=== PATIENT | female | born 1950 | race Caucasian/White ===

== ENCOUNTER → 2017-02-07 13:21 | Emergency (ER) | payer MEDICARE ==
[2017-02-07 15:38] LABS: Hematocrit 38 % (35-47); Hemoglobin 12.9 g/dl (12.0-16.0); Mean Corpuscular HGB Conc 34 g/dl (31-36); Mean Corpuscular Hemoglobin 32 pg (27-31); Mean Corpuscular Volume 95 fL (80-97); Mean Platelet Volume 7 um3 (7.4-10.4); Red Blood Count 4.02 10^6/ul (4.0-5.4); Red Cell Distribution Width 12 % (10.5-15)
[2017-02-07 15:54] LABS: ALT 13 U/L (7-52); AST 16 U/L (13-39); Albumin 4.4 g/dL (3.2-5.2); Alkaline Phosphatase 158 U/L (34-104); Anion Gap 7 mmol/L (2-11); Blood Urea Nitrogen 17 mg/dL (6-24); CO2 Carbon Dioxide 26 mmol/L (22-32); Calcium 10.2 mg/dL (8.6-10.3); Chloride 104 mmol/L (101-111); EGFR African American 90.7 (>60); EGFR Non-African American 70.5 (>60); Globulin 3.5 g/dL (2-4); Glucose 102 mg/dL (70-100); Lipase < 10 U/L (11.0-82.0); Potassium 4.4 mmol/L (3.5-5.0); Sodium 137 mmol/L (133-145); Total Protein 7.9 g/dL (6.4-8.9)
[2017-02-07 16:08] VITALS: BP 192/82
--- NOTE | 2017-02-07 16:47 | RAD ---
HISTORY: Right upper quadrant pain COMPARISONS: None TECHNIQUE: Multiple transverse and longitudinal ultrasound images were obtained of the right upper quadrant. FINDINGS: LIVER: The liver exhibits mostly homogenous increased echogenicity with patchy areas of more normal hypoechogenicity. There are no focal suspicious masses or lesions. Normal hepatic and portal venous blood flow is duplicated with color flow imaging. There is no gross intrahepatic biliary duct dilatation. GALLBLADDER AND EXTRAHEPATIC BILIARY DUCT: The gallbladder is normal in appearance without intraluminal stones or other soft tissue masses. There is no pericholecystic fluid or gallbladder wall thickening. The common bile duct measures a maximum diameter of 6 mm. PANCREAS: The portions of the pancreas not obscured by bowel gas are normal in appearance. RIGHT KIDNEY: The right kidney is normal in size, morphology and echogenicity. AORTA AND IVC: The visualized portions are normal in appearance and not pathologically dilated. IMPRESSION: 1. NO DEFINITE SONOGRAPHIC FEATURES OF CHOLELITHIASIS, BILIARY OBSTRUCTION OR ACUTE INFLAMMATORY CHANGE OF THE GALLBLADDER. 2. LIVER FINDINGS ARE CONSISTENT WITH GEOGRAPHIC HEPATIC STEATOSIS WITH AREAS OF FOCAL FATTY SPARING.
--- NOTE | 2017-02-08 07:35 | ED ---
Joss Yeung Gabriel, scribed for Samy Maza MD on 02/07/17 at 1630 . Abdominal Pain/Female - HPI Summary HPI Summary: This patient is a 66 year old F presenting to [facility] accompanied by daughter with a chief complaint of ABD pain since 2 weeks ago. The patient rates the pain ranging from 3/10 to 7/10 at its worst in severity, radiating into her back and nagging. The pain is waxing and waning. Patient denies n/v/d. - History of Current Complaint Chief Complaint: EDAbdPain Stated Complaint: RIGHT ABD PAIN Time Seen by Provider: 02/07/17 16:01 Hx Obtained From: Patient Onset/Duration: Lasting Weeks - 2, Still Present Timing: Constant - waxing and waning Severity Currently: Mild Pain Intensity: 8 Pain Scale Used: 0-10 Numeric Location: Diffuse - at RUQ Radiates: Yes Radiates to: Back Associated Signs and Symptoms: Negative: Nausea, Vomiting, Diarrhea Allergies/Adverse Reactions: Allergies Allergy/AdvReac Type Severity Reaction Status Date / Time Acetaminophen Allergy Hives Verified 02/07/17 13:31 [From Darvocet-N] Erythromycin Allergy GI Upset Verified 02/07/17 13:31 Penicillins Allergy Hives Verified 02/07/17 13:30 Propoxyphene Allergy Hives Verified 02/07/17 13:31 [From Darvocet-N] Sulfa Antibiotics Allergy See Comment Verified 02/07/17 13:30 PMH/Surg Hx/FS Hx/Imm Hx Previously Healthy: No Endocrine/Hematology History: Reports: Hx Diabetes - borderline diabetic Cardiovascular History: Reports: Hx Hypertension - Cancer History Hx Chemotherapy: No Hx Radiation Therapy: No Infectious Disease History: No Infectious Disease History: Denies: Traveled Outside the [place] in Last 30 Days - Family History Known Family History: Positive: Diabetes - NIDDM - Social History Alcohol Use: None Substance Use Type: Reports: None Smoking Status (MU): Former Smoker Review of Systems Negative: Fever Positive: Abdominal Pain. Negative: Vomiting, Diarrhea, Nausea All Other Systems Reviewed And Are Negative: Yes Physical Exam - Summary Physical Exam Summary: VITAL SIGNS: Reviewed. GENERAL: Patient is a well-developed and nourished female who is lying comfortable in the stretcher. ~Patient is not in any acute respiratory distress. HEAD AND FACE: Normocephalic and atraumatic. EYES: PERRLA, EOMI x 2, No injected conjunctiva. EARS: Hearing grossly intact. Ear canals and tympanic membranes are WNL. MOUTH: Oropharynx within normal limits. NECK: Supple, trachea is midline, no adenopathy, no JVD. CHEST: Symmetric, no tenderness at palpation LUNGS: Clear to auscultation bilaterally. No wheezing or crackles. CVS: RRR, S1 and S2 present, no murmurs or gallops appreciated. ABDOMEN: Soft. No signs of distention. Positive bowel sounds. No rebound no guarding, and no masses palpated. No abdominal bruit or pulsations. Slight RUQ pain EXTREMITIES: FROM in all major joints, no edema, no cyanosis or clubbing. NEURO: Alert and oriented x 3. No acute neurological deficits. Speech is normal. SKIN: Dry and warm Triage Information Reviewed: Yes Vital Signs On Initial Exam: Initial Vitals Temp Pulse Resp BP Pulse Ox 98.2 F 83 17 144/84 97 02/07/17 13:28 02/07/17 13:28 02/07/17 13:28 02/07/17 13:28 02/07/17 13:28 Vital Signs Reviewed: Yes - Crescent Coma Scale Coma Scale Total: 15 Diagnostics - Vital Signs Vital Signs Temp Pulse Resp BP Pulse Ox 02/07/17 16:08 192/82 02/07/17 15:21 97.6 F 72 16 134/80 99 02/07/17 13:28 98.2 F 83 17 144/84 97 - Laboratory Lab Results: Lab Results 02/07/17 02/07/17 Range/Units 15:25 15:25 WBC 9.0 (3.5-10.8) 10^3/ul RBC 4.02 (4.0-5.4) 10^6/ul Hgb 12.9 (12.0-16.0) g/dl Hct 38 (35-47) % MCV 95 (80-97) fL MCH 32 H (27-31) pg MCHC 34 (31-36) g/dl RDW 12 (10.5-15) % Plt Count 404 (150-450) 10^3/ul MPV 7 L (7.4-10.4) um3 Neut % (Auto) 76.5 (38-83) % Lymph % (Auto) 15.5 L (25-47) % [place] % (Auto) 7.1 (1-9) % Eos % (Auto) 0.4 (0-6) % Baso % (Auto) 0.5 (0-2) % Absolute Neuts (auto) 6.9 (1.5-7.7) 10^3/ul Absolute Lymphs (auto) 1.4 (1.0-4.8) 10^3/ul Absolute Monos (auto) 0.6 (0-0.8) 10^3/ul Absolute Eos (auto) 0 (0-0.6) 10^3/ul Absolute Basos (auto) 0 (0-0.2) 10^3/ul Absolute Nucleated RBC 0.01 10^3/ul Nucleated RBC % 0.1 Sodium 137 (133-145) mmol/L Potassium 4.4 (3.5-5.0) mmol/L Chloride 104 (101-111) mmol/L Carbon Dioxide 26 (22-32) mmol/L Anion Gap 7 (2-11) mmol/L BUN 17 (6-24) mg/dL Creatinine 0.81 (0.51-0.95) mg/dL Est GFR ( Amer) 90.7 (>60) Est GFR (Non-Af Amer) 70.5 (>60) BUN/Creatinine Ratio 21.0 H (8-20) Glucose 102 H (70-100) mg/dL Calcium 10.2 (8.6-10.3) mg/dL Total Bilirubin 0.30 (0.2-1.0) mg/dL AST 16 (13-39) U/L ALT 13 (7-52) U/L Alkaline Phosphatase 158 H (34-104) U/L Total Protein 7.9 (6.4-8.9) g/dL Albumin 4.4 (3.2-5.2) g/dL Globulin 3.5 (2-4) g/dL Albumin/Globulin Ratio 1.3 (1-3) Lipase < 10 L (11.0-82.0) U/L Result Diagrams: 02/07/17 15:25 02/07/17 15:25 Lab Statement: Any lab studies that have been ordered have been reviewed, and results considered in the medical decision making process. - Additional Comments Diagnostic Additional Comments: US gallbladder reveals, per radiologist, 1. NO DEFINITE SONOGRAPHIC FEATURES OF CHOLELITHIASIS, BILIARY OBSTRUCTION OR ACUTE INFLAMMATORY CHANGE OF THE GALLBLADDER. 2. LIVER FINDINGS ARE CONSISTENT WITH GEOGRAPHIC HEPATIC STEATOSIS WITH AREAS OF FOCAL FATTY SPARING. ED physician has reviewed this radiology report and agrees. Abdominal Pain Fem Course/Dx - Course Course Of Treatment: In the ED course an IV access was obtained. Patient was placed in a radiographer cardiac catheterization. Patient was started with IV fluids. Labs without any significant abnormality. RUQ U/S Impression: 1. NO DEFINITE SONOGRAPHIC FEATURES OF CHOLELITHIASIS, BILIARY OBSTRUCTION OR ACUTE INFLAMMATORY CHANGE OF THE GALLBLADDER. 2. LIVER FINDINGS ARE CONSISTENT WITH GEOGRAPHIC HEPATIC STEATOSIS WITH AREAS OF FOCAL FATTY SPARING. Since patient is asymptomatic and test results are within normal limits, patient will be discharged back home. I discussed all the findings and test results with the patient. Patient was instructed to return to the emergency room immediately if any of the symptoms return or worsens. They were explained the possibility of an early abdominal pathology which was not detected at this time despite the physical exam and testing. They understand and agree. Abdominal exam before discharge: Soft, NT. No signs of distention. BS present. No rebound no guarding , and no masses palpated. Patient is alert and oriented and hemodynamically stable. Patient is to follow up with primary care physician in the next 2 to 3 days. Patient agree and understands. I discussed all the findings and test results with the patient. Patient was instructed to return to the emergency room immediately if any of the symptoms return or worsens. They were explained the possibility of an early abdominal pathology which was not detected at this time despite the physical exam and testing. They understand and agree. Abdominal exam before discharge: Soft, NT. No signs of distention. BS present. No rebound no guarding, and no masses palpated. Patient is alert and oriented and hemodynamically stable. Patient is to follow up with primary care physician in the next 2 to 3 days. Patient agree and understands. - Diagnoses Provider Diagnoses: Right upper quadrant pain, Nonalcoholic hepatosteatosis Discharge - Discharge Plan Condition: Stable Disposition: HOME Patient Education Materials: Chronic Abdominal Pain (ED) Referrals: Kinsey Garcia MD [Primary Care Provider] - 3 Days Additional Instructions: RETURN TO THE EMERGENCY DEPARTMENT FOR CHANGING OR WORSENING SYMPTOMS. The documentation as recorded by the Joss woo Gabriel accurately reflects the service I personally performed and the decisions made by me, Samy Maza MD.
== END | disposition home or self-care (01) ==
LOC: ED 13:21
DX: R10.11 Right upper quadrant pain (principal); K75.81 Nonalcoholic steatohepatitis (NASH); Z88.0 Allergy status to penicillin; Z88.8 Allergy status to other drugs, medicaments and biological substances; Z88.2 Allergy status to sulfonamides; I10 Essential (primary) hypertension; Z87.891 Personal history of nicotine dependence
CPT/HCPCS: 36415; 76705; 80053; 83690; 85025

== ENCOUNTER 2017-06-03 13:15 | Inpatient (IN) | payer MEDICARE ==
--- NOTE | 2017-06-03 16:08 | RAD ---
INDICATION: Left hip pain. COMPARISON: Comparison is made with a prior x-ray study of the left hip from June 03, 2017. TECHNIQUE: Contiguous axial sections were obtained through the pelvis without intravenous or oral contrast. Images were reconstructed in the coronal and sagittal planes. FINDINGS: There is a large soft tissue density mass present in the left hemipelvis centered in the left iliac bone extending into the acetabulum measuring 11.4 x 8.2 x 10.0 cm in size. There is complete replacement of the bone by the mass in a large section of the body of the left iliac bone as well as the roof and medial wall of the acetabulum. The patient would be at high risk for pathologic fracture although a discrete fracture line is not seen. No significant enlarged pelvic or inguinal lymph nodes are seen. On the very first couple images there is a soft tissue density nodule which is partially visualized located in the subcutaneous tissues of the anterior abdominal wall centered to the right of the midline measuring 2.2 x 2.0 cm in size. The visualized portion of the small bowel colon appear nondistended. No free intraperitoneal fluid is seen. The results of this exam were discussed with the referring clinician. IMPRESSION: 1. LARGE SOFT TISSUE DENSITY MASS PRESENT WITHIN THE PELVIS ON THE LEFT SIDE REPLACING A LARGE SECTION OF THE LEFT ILIAC BONE AND ACETABULUM. THIS WOULD BE HIGH RISK FOR PATHOLOGIC FRACTURE AND MOST CONSISTENT WITH A METASTATIC LESION ALTHOUGH A PRIMARY TUMOR CANNOT BE EXCLUDED. 2. SOFT TISSUE DENSITY NODULE PARTIALLY VISUALIZED IN THE SUBCUTANEOUS TISSUES OF THE ANTERIOR ABDOMINAL WALL.
--- NOTE | 2017-06-03 16:14 | ED ---
Lower Extremity - HPI Summary HPI Summary: 63-year-old female presents with pain for the past couple months. She states she had normal x-rays couple months ago. She states her pain started after she fell 3 months ago. She admits to numbness and healing down her left leg. She states she has noticed some atrophy of her left leg. She states that she presented pressure on the left side it really hurts. She states she is unable to ambulate any more. He states she feels very weak. She admits to night sweats. She denies any fevers. She is unsure she has been losing weight. She denies any belly pain. She denies any chest pain or shortness of breath. She has no medical conditions besides high blood pressure. She had an x-ray today that showed a lytic lesion. She has been using oxycodone for her pain. - History of Current Complaint Chief Complaint: EDExtremityLower Stated Complaint: HIP PAIN-XRAY SENT Time Seen by Provider: 06/03/17 15:17 Pain Intensity: 9 - Allergies/Home Medications Allergies/Adverse Reactions: Allergies Allergy/AdvReac Type Severity Reaction Status Date / Time acetaminophen Allergy Hives Verified 06/03/17 13:26 [From Darvocet-N] erythromycin base Allergy GI Upset Verified 06/03/17 13:26 propoxyphene Allergy Hives Verified 06/03/17 13:26 [From Darvocet-N] Sulfa (Sulfonamide Allergy Unknown Verified 06/03/17 13:26 Antibiotics) Reaction Details Home Medications: Home Medications Aspirin EC Low Dose* [Ecotrin EC Low Dose 81 MG*] 81 mg PO BEDTIME 06/03/17 [ History Confirmed 06/03/17] Biotin 1 mg PO DAILY 06/03/17 [History Confirmed 06/03/17] Cod Liver Oil 1 cap PO DAILY 06/03/17 [History Confirmed 06/03/17] Diazepam TAB(*) [Valium TAB(*)] 5 mg PO ONCE PRN 06/03/17 [History Confirmed ] Flaxseed Oil 1,000 mg PO DAILY 06/03/17 [History Confirmed 06/03/17] Gabapentin CAP(*) [Neurontin 300 CAP(*)] 300 mg PO BID 06/03/17 [History Confirmed 06/03/17] Gabapentin CAP(*) [Neurontin 300 CAP(*)] 600 mg PO BEDTIME 06/03/17 [History Confirmed 06/03/17] Om3-Dha/Epa/D3/Lutein/Zeazanth [Eye [place] Advantage/Vitam] 1 cap PO DAILY [History Confirmed 06/03/17] Pravastatin (NF) [Pravachol (NF)] 40 mg PO DAILY 06/03/17 [History Confirmed ] SUMAtriptan TAB* [Imitrex TAB*] 100 mg PO DAILY PRN 06/03/17 [History Confirmed 06/03/17] dilTIAZem HCl [Cartia Xt] 180 mg PO DAILY 06/03/17 [History Confirmed 06/03/17] oxyCODONE TAB* [Roxycodone TAB 5 mg*] 5 mg PO Q6H PRN 06/03/17 [History Confirmed 06/03/17] PMH/Surg Hx/FS Hx/Imm Hx Endocrine/Hematology History: Denies: Hx Diabetes - borderline diabetic Cardiovascular History: Reports: Hx Hypertension Denies: Hx Pacemaker/ICD History: Denies: Hx Renal Disease Sensory History: Denies: Hx Hearing Aid Psychiatric History: Denies: Hx Panic Disorder - Cancer History Hx Chemotherapy: No Hx Radiation Therapy: No - Surgical History Surgery Procedure, Year, and Place: HYSTERECTOMY. APPENDIX. BILATERAL BREAST BIOPSY Infectious Disease History: No Infectious Disease History: Denies: Traveled Outside the [place] in Last 30 Days - Family History Known Family History: Positive: Diabetes - NIDDM - Social History Alcohol Use: Rare Substance Use Type: Reports: None Smoking Status (MU): Former Smoker Review of Systems Negative: Fever Negative: Chest Pain Negative: Shortness Of Breath Positive: Myalgia - left hip pain All Other Systems Reviewed And Are Negative: Yes Physical Exam Triage Information Reviewed: Yes Vital Signs On Initial Exam: Initial Vitals Temp Pulse Resp BP Pulse Ox 99.5 F 102 16 129/100 94 06/03/17 13:19 06/03/17 13:19 06/03/17 13:19 06/03/17 13:19 06/03/17 13:19 Vital Signs Reviewed: Yes Appearance: Positive: Well-Appearing Skin: Positive: Warm, Dry Head/Face: Positive: Normal Head/Face Inspection Eyes: Positive: Normal, Conjunctiva Clear Respiratory/Lung Sounds: Positive: Clear to Auscultation, Breath Sounds Present Cardiovascular: Positive: Normal, RRR Musculoskeletal: Positive: Limited @ - left hip, Other - atrophy of left thigh, good pulses, sensation grossly intact, tenderness over left hip Neurological: Negative: Babinski Left - neg Diagnostics - Vital Signs Vital Signs Temp Pulse Resp BP Pulse Ox 06/03/17 13:19 99.5 F 102 16 129/100 94 - Laboratory Result Diagrams: 06/03/17 15:58 06/03/17 15:58 Lab Statement: Any lab studies that have been ordered have been reviewed, and results considered in the medical decision making process. - CT pelvis CT Interpretation: Positive (See Comments) - IMPRESSION: 1. LARGE SOFT TISSUE DENSITY MASS PRESENT WITHIN THE PELVIS ON THE LEFT SIDE REPLACING A LARGE SECTION OF THE LEFT ILIAC BONE AND ACETABULUM. THIS WOULD BE HIGH RISK FOR PATHOLOGIC FRACTURE AND MOST CONSISTENT WITH A METASTATIC LESION ALTHOUGH A PRIMARY TUMOR CANNOT BE EXCLUDED. 2. SOFT TISSUE DENSITY NODULE PARTIALLY VISUALIZED IN THE SUBCUTANEOUS TISSUES OF THE ANTERIOR ABDOMINAL WALL. CT Interpretation Completed By: Radiologist Lower Extremity Course/Dx - Course Course Of Treatment: 63-year-old female presents with pain for the past couple months. She states she had normal x-rays couple months ago. She states her pain started after she fell 3 months ago. She admits to numbness and healing down her left leg. She states she has noticed some atrophy of her left leg. She states that she presented pressure on the left side it really hurts. She states she is unable to ambulate any more. He states she feels very weak. She admits to night sweats. She denies any fevers. She is unsure she has been losing weight. She denies any belly pain. She denies any chest pain or shortness of breath. She has no medical conditions besides high blood pressure. She had an x-ray today that showed a lytic lesion. She has been using oxycodone for her pain. On exam has atrophy of left thigh, neurovascular intact, tenderness left hip, normal reflex. CT shows lytic lesion of iliac bone and acetabulum. will get CT of chest, abd, pelvis to look for source of tumor. due to not being able to ambulate will consult hospialists which dr Allen will admit. - Diagnoses Differential Diagnosis/HQI/PQRI: Positive: Fracture (Closed), Sprain, Strain Provider Diagnoses: Lytic bone lesion of hip Discharge - Sign-Out/Discharge Documenting (check all that apply): Discharge - Discharge Plan Condition: Stable Disposition: ADMITTED TO [facility] Referrals: Kinsey Garcia MD [Primary Care Provider] - - Billing Disposition and Condition Condition: STABLE [place] [place]
[2017-06-03 16:15] LABS: ABS Basophils 0 10^3/ul (0-0.2); ABS Eosinophils 0.1 10^3/ul (0-0.6); ABS Lymphocytes 1.4 10^3/ul (1.0-4.8); ABS Monocytes 1.1 10^3/ul (0-0.8); ABS Neutrophils 5.7 10^3/ul (1.5-7.7); ABS Nucleated RBC 0 10^3/ul; Eosinophil % 1.5 % (0-6); Hematocrit 34 % (35-47); Hemoglobin 11.3 g/dl (12.0-16.0); Lymphocyte % 16.6 % (25-47); Mean Corpuscular HGB Conc 34 g/dl (31-36); Mean Corpuscular Hemoglobin 30 pg (27-31); Mean Corpuscular Volume 89 fL (80-97); Mean Platelet Volume 7 um3 (7.4-10.4); Nucleated Red Blood Cells % 0.2; Platelet Count 533 10^3/ul (150-450); Red Blood Count 3.81 10^6/ul (4.0-5.4); Red Cell Distribution Width 15 % (10.5-15); White Blood Count 8.3 10^3/ul (3.5-10.8)
[2017-06-03] MEDS ORDERED: Docusate CAP* 100 MG PO PRN (17:30)
[2017-06-03] MEDS ORDERED: Ondansetron INJ* 2 MG/ML VIAL IV PRN (17:30)
[2017-06-03] MEDS ORDERED: Acetaminophen TAB* 325 MG PO PRN (17:30)
[2017-06-03] MEDS ORDERED: Iohexol 300* (CONTRAST) 10 ML SDV IV ONE (17:39)
[2017-06-03] MEDS ORDERED: Enoxaparin(*) 40 MG/0.4 ML SYR SUBCUT SCH (18:00)
[2017-06-03 18:01] LABS: Corrected Retic Count 2.3 % (0.5-1.5); Hematocrit for Retic CNT 35 % (35-47); RBC Retic Count 3.87 10^6/ul (4.6-6.2)
--- NOTE | 2017-06-03 18:04 | RAD ---
HISTORY: Lytic lesion of the hip COMPARISONS: June 03, 2017 TECHNIQUE: Multiple contiguous axial CT scans were obtained of the chest, abdomen, and pelvis after the administration of intravenous contrast. Coronal and sagittal multiplanar reformations are submitted for review.. Oral contrast was administered. Delayed images were obtained through the abdomen and pelvis. FINDINGS: CHEST NECK AND THYROID: The lower neck and thyroid are unremarkable. CHEST WALL: There is no lower cervical, axillary, or supraclavicular lymphadenopathy by size criteria. HEART AND PERICARDIUM: The heart is unremarkable. AORTA AND PULMONARY VASCULATURE: The aorta and pulmonary vasculature are normal. MEDIASTINUM: There is a 1.9 cm enhancing subcarinal lymph node. There are smaller paratracheal and prevascular lymph nodes. PREMA: There is a subcentimeter short axis hilar lymph nodes. AIRWAY AND ESOPHAGUS: The airway is unremarkable, without endobronchial filling defect. The esophagus is grossly normal. LUNG PARENCHYMA: There is a spiculated nodule of the right lower lobe on axial image 36 measuring 1 cm in size. There is a 0.5 cm nodule in the periphery of the right middle lobe. There is a large tic related nodule within the superior segment of the right lower lobe measuring 2.5 cm in size. PLEURA: No pleural abnormalities are noted. BONES AND SOFT TISSUES: There is an expansile lytic rib lesion on the left measuring 6.9 x 3.8 x 5.9 cm in size centered on the left fifth rib. Degenerative changes are noted of the spine. Vertebral bodies are preserved in height. ABDOMEN/PELVIS: LIVER: The liver is normal in shape, size, contour, and attenuation. BILE DUCTS: There is no intrahepatic or extrahepatic biliary dilatation. GALLBLADDER: The gallbladder is normal, without pericholecystic inflammatory change. PANCREAS: The pancreas is normal, without mass or ductal dilatation. SPLEEN: Normal in size and appearance. UPPER GI TRACT: Evaluation of the gastrointestinal tract is limited by incomplete gastric distention. The upper GI tract is unremarkable. SMALL BOWEL & MESENTERY: The small bowel is normal in contour, course, and caliber. There is no obstruction or dilatation. COLON: The colon is normal in contour, course, caliber. There is no pericolonic inflammatory change. ADRENALS: Normal bilaterally. KIDNEYS: The kidneys are normal in shape, size, contour, and axis. There is no hydronephrosis or nephrolithiasis. BLADDER: The bladder is smooth in contour. PELVIC ORGANS: The pelvic organs are not visualized. AORTA: There is calcific atherosclerotic disease of the abdominal aorta and its branches, without aneurysmal dilatation IVC: Unremarkable LYMPH NODES: There is no lymphadenopathy by size criteria. ABDOMINAL WALL: There is no evidence for abdominal wall hernia. There is an enhancing nodule deep to the deep fascia of the anterior abdominal wall centered on axial image 35 measuring 2.1 cm in size. BONES AND SOFT TISSUES: As noted on the previous examination, there is expansile lytic lesion of the left pelvis with this large soft tissue component. Degenerative changes are noted of the lumbar spine. OTHER: None IMPRESSION: 1. THERE IS A 2.5 CM RELATED NODULE OF THE SUPERIOR SEGMENT OF THE RIGHT LOWER LOBE. SMALLER NODULES ARE NOTED ELSEWHERE. 2. THERE IS AN EXPANSILE LYTIC LESION OF THE LEFT HEMIPELVIS WITH LARGE SOFT TISSUE COMPONENT IS DESCRIBED IN THE PREVIOUS EXAMINATION. SIMILARLY, THERE IS AN EXPANSILE LYTIC LESION OF THE LEFT HEMITHORAX, AND AN ENHANCING NODULE OF THE SUBCUTIS FAT ALONG THE ANTERIOR ABDOMINAL WALL, ALL CONSISTENT WITH METASTATIC DISEASE. THE APPEARANCE IS SUGGESTIVE OF A LUNG PRIMARY, THOUGH THE IMAGING APPEARANCE IS INDETERMINATE. 3. ATHEROSCLEROSIS.
[2017-06-03] MEDS ORDERED: Aspirin EC TAB* 81 MG TAB.EC PO SCH (21:00)
[2017-06-03] MEDS: Gabapentin CAP(*) 300 MG PO SCH (22:05)
[2017-06-03] MEDS: oxyCODONE TAB* 5 MG TAB PO PRN (22:06)
[2017-06-03] MEDS: Heparin VIAL(*) 5000 UNITS/ML VIAL (FIVE THOUSAND) SUBCUT SCH (22:08)
[2017-06-03] MEDS: Lidocaine Patch REMOVE* 1 NOTE MISC SCH (22:15)
--- NOTE | 2017-06-04 03:54 | HP ---
CC: Dr. Kinsey Garcia * MEDICINE HISTORY AND PHYSICAL: DATE OF ADMISSION: 06/03/17 PROVIDER: Russell Mercedes NP ATTENDING PHYSICIAN: Liza Tatum DO * (as dictated by Russell Mercedes NP) CONSULTING PHYSICIAN: Dr. Aguilar Arguello, Oncology. PRIMARY CARE PROVIDER: Dr. Kinsey Garcia. CHIEF COMPLAINT: Inability to ambulate and left leg pain. HISTORY OF PRESENT ILLNESS: Ms. Pickett is a 66-year-old female who came in today for an outpatient x-ray of the left hip and pelvis. She reports a 3- month history of left leg pain that started with a fall when she was attempting to ambulate to the bathroom. 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 She describes a grabbing sensation through the left lower extremity that makes her whole leg hurt. She has been treating her pain with gabapentin and oxycodone. She also has been complaining of back pain and actually was sent for a lumbar spine MRI on 05/30/17 that was ordered by Ellie Leslie of Neurosurgery. At that time, the MRI showed multilevel degenerative disk disease with broad-based protrusion with spondylitic ridge and facet and ligamentous hypertrophy at L3-L4 which causes mild foraminal stenosis. There were heterogenous bone marrow signal changes seen in the lumbar spine that have now been noted to likely represent metastatic bony disease. The patient states that at the time of her MRI, she had asked if they could extend the scan to her left hip, but was unable to get an order to do so resulting in her coming back today for the x-ray of her left hip and pelvis. The x-ray today showed concern for a large lytic lesion involving the left ileum including the posterior and anterior columns of the hip and acetabulum as well as the acetabular roof, the magnitude of osteophytosis at the medial aspect and roof of the acetabulum strongly represents a pathologic fracture; however, no displaced fracture is visualized. There is a note that with radiographic correlation in retrospect the lumbosacral spine MRI of 05/30/17 demonstrates marrow changes throughout the visualized axial skeleton suspicious for diffuse osseous metastasis. With these findings on her x-ray, the patient was then referred to the ER. In the ER, the patient had a CT of the chest, abdomen, and pelvis ordered. She was initially ordered only a CT of the pelvis without contrast, which again showed large soft tissue density mass present within the pelvis on the left side replacing a large section in the left iliac bone and acetabulum as well as a soft tissue density nodule partially visualized in the subcutaneous tissues of the anterior abdominal wall. The CT of the chest, abdomen, and pelvis, however, also reveals concern for a 1.9 cm enhancing subcarinal lymph node. There is a spiculated nodule of the right lower lobe on axial image 36 measuring 1 cm in size. There is a 0.5 cm nodule on the periphery of the right middle lobe. There is a large tick related nodule within the superior segment of the right lower lobe measuring 2.5 cm in size. There is an expansile lytic rib lesion in the left measuring 6.9 x 3.8 x 5.9 cm in size centered on the left fifth rib. There was also an enhancing nodule deep to the deep fascia of the anterior abdominal wall centered on axial image 35 measuring 2.1 cm in size. With these findings, the radiologist did note that this is consistent with metastatic disease with an appearance suggestive of a lung primary, although the imaging appearance is indeterminate. The concerns for these findings were reviewed with the patient and family. In addition to the above, Ms. Pickett reports weakness and night sweats. She denies any fevers, chest pain, cough, shortness of breath, or hemoptysis. She denies abdominal pain, nausea, vomiting, diarrhea, or changes of bowel habits. Her weight has stayed roughly the same. She denies any hematemesis or melena. She does report some difficulty concentrating which she attributes to her oxycodone and has had decreased sleep recently, which is secondary to her pain. Given her inability to walk as well as these other findings, Hospital Medicine was consulted for admission. PAST MEDICAL HISTORY: Includes hypertension, borderline diabetes, hypercholesterolemia, and "dry" macular degeneration. HOME MEDICATIONS: 1. Flaxseed oil 1000 mg daily. 2. Cod liver oil 1 capsule daily. 3. Aspirin 81 mg at bedtime. 4. Eye [place] advanced vitamin 1 capsule daily. 5. Biotin 1 mg daily. 6. Sumatriptan 100 mg daily p.r.n. 7. Diltiazem 180 mg daily. 8. Pravastatin 40 mg daily. 9. Gabapentin 300 mg twice a day and 600 mg at bedtime. 10. Diazepam 5 mg once p.r.n. 11. Oxycodone 5 mg q.6 hours p.r.n. ALLERGIES: Include PENICILLIN, which causes hives; SULFA drugs, which raises her blood pressure; ERYTHROMYCIN, which causes stomach upset; DARVON AND SEA WEED. FAMILY HISTORY: Includes a brother, who of heart disease. She has 3 sisters with a history of cancer, one has from breast cancer, another one is living, but has been treated for thyroid and breast cancer and another sister , who had back problems and was found to have a mass within the spine, metastatic disease and she has also . SOCIAL HISTORY: She is a former smoker. She has a 30-year history of smoking. She quit in April 2016. She denies alcohol or illicit drug use. She is retired. 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 She is . Her , Sebastian, is her surrogate decision maker in the event of emergency. He can be reached at [phone]. REVIEW OF SYSTEMS: A 12-point review of systems was completed. All pertinent positives and negative as per HPI. PHYSICAL EXAMINATION GENERAL: This is an older female, who is sitting up on the ED stretcher, in no acute distress. She is very pleasant and interactive. Alert and oriented x3. Becomes tearful, appropriately when told of diagnostic concerns. VITAL SIGNS: Temperature 99.5, heart rate 102, respiratory rate 16, blood pressure 129/100, O2 saturation 94% on room air. HEENT: Head is atraumatic, normocephalic. Face is symmetrical. Pupils are equal, round, and reactive to light. Extraocular movements are intact. Oral mucosa is moist. There is no oropharyngeal erythema or exudate. NECK: Supple. No JVD noted. No lymphadenopathy appreciated. LUNGS: Clear to auscultation bilaterally. No adventitious lung sounds. No accessory muscle use noted. CARDIAC: S1, S2. Heart sounds regular rate and rhythm, but is mildly tachycardic. No murmurs auscultated. No peripheral edema noted. ABDOMEN: Soft, nondistended with normoactive bowel sounds. Diffuse tenderness with deep palpation to right and mid abdomen. There is no CVA tenderness. No hepatosplenomegaly. MUSCULOSKELETAL: No clubbing or cyanosis. The patient has limited range of motion of the left lower extremity, is unable to fully weight bear through it. There is pain with extension of the left lower extremity. She has full active range of motion of the right lower extremity. SKIN: Looks grossly intact. NEUROLOGIC: Speech is clear. She is alert and oriented. She is able to move all extremities, but the left lower extremity causes significant pain. Sensation is intact to light touch at the bilateral lower extremities. Strength is 5/5 in the upper extremities, 5/5 in the right lower extremity. Left lower extremity difficult to assess due to guarding. LABORATORY DATA AND DIAGNOSTIC STUDIES: Imaging as per the HPI. Laboratory data: CBC: WBC 8.3, RBC 3.81, hemoglobin 11.3, hematocrit 34, platelet count 533. CMP: Sodium 132, potassium 4.3, chloride 98, carbon dioxide 26, BUN 15, creatinine 0.62, glucose 123, calcium 12, iron 24, TIBC 305 , total bilirubin 0.5, AST 44, ALT 72, alk phos 154, albumin 3.5. TSH is pending. Vitamin B12 is pending. ASSESSMENT AND PLAN: This is a 66-year-old female who presents today with left lower extremity pain and inability to walk and was found to have pelvic and left - sided lytic lesions as well as multiple metastatic lesions concerning for metastatic disease with lung as possible primary. She will be admitted as an inpatient: Plan is as follows: 1. Concern for metastatic disease. I have consulted Dr. Arguello of Oncology, who will see the patient tomorrow. I have reviewed the concern and diagnostic images with the family. The patient is notably tearful, but cooperative and agreeing to meet with Oncology. We will work on comfort and pain management. She will resume her oxycodone. She is ordered IV morphine to start as well as Flexeril for muscle spasms. We can certainly try a Lidoderm patch to the left hip to see if that provides a localized pain control. 2. History of hypertension, continue home diltiazem. Her initial blood pressure is elevated, which I suspect is secondary to anxiety. We will continue to monitor and titrate medications as appropriate. 3. Neuropathic pain secondary to lesions. Continue gabapentin. 4. Hypercholesterolemia. Continue pravastatin. 5. History of macular degeneration. Continue eye vitamins. 6. History of borderline diabetes, the patient is diet controlled. Check an A1c. Her glucose is 123 on her CMP, which is reasonable. 7. FEN. The patient is ordered a heart healthy diet. 8. DVT prophylaxis. The patient will be on subcu heparin and SCDs. 9. Code status. She is a full code. TIME SPENT: Time spent on this admission was approximately 65 minutes, more than half that time was spent [id number] with the patient obtaining the history and physical, performing physical examination, and reviewing the plan of care. Plan of care was also reviewed with my attending, Dr. Tatum, who is in agreement. RUSSELL MERCEDES, COPER HAND [id number]/[facility] #: [id number] DUC
[2017-06-04] MEDS: Morphine INJ* 2 MG/ML 1 ML CARPUJECT IV PRN ×2 (04:09→08:31)
[2017-06-04] MEDS: Heparin VIAL(*) 5000 UNITS/ML VIAL (FIVE THOUSAND) SUBCUT SCH (06:36)
[2017-06-04 06:48] LABS: ABS Basophils 0 10^3/ul (0-0.2); ABS Eosinophils 0.2 10^3/ul (0-0.6); ABS Lymphocytes 1.2 10^3/ul (1.0-4.8); ABS Monocytes 1.1 10^3/ul (0-0.8); ABS Nucleated RBC 0 10^3/ul; Eosinophil % 2.1 % (0-6); Hematocrit 32 % (35-47); Hemoglobin 10.9 g/dl (12.0-16.0); Lymphocyte % 16.3 % (25-47); Mean Corpuscular HGB Conc 34 g/dl (31-36); Mean Corpuscular Hemoglobin 30 pg (27-31); Mean Corpuscular Volume 88 fL (80-97); Mean Platelet Volume 7 um3 (7.4-10.4); Nucleated Red Blood Cells % 0; Platelet Count 519 10^3/ul (150-450); Red Blood Count 3.65 10^6/ul (4.0-5.4); Red Cell Distribution Width 14 % (10.5-15); White Blood Count 7.5 10^3/ul (3.5-10.8)
[2017-06-04 07:04] LABS: EGFR Non-African American 103.7 (>60)
[2017-06-04] MEDS: Multivitamins/Minerals TAB PO SCH (08:31)
[2017-06-04] MEDS: Atorvastatin* 10 MG TAB PO SCH (08:31)
[2017-06-04] MEDS: Gabapentin CAP(*) 300 MG PO SCH ×3 (08:33→21:24)
[2017-06-04] MEDS: Lidocaine PATCH 5%* 1 PATCH TRANSDERM SCH (08:35)
[2017-06-04] MEDS ORDERED: Diltiazem CD CAP* 180 MG PO SCH (09:00)
--- NOTE | 2017-06-04 10:01 | PN ---
Subjective Date of Service: 06/04/17 Interval History: Patient seen and examined at bedside. She was tearful in recalling attempts to ambulate overnight and states it causes significant pain. Recommended NWB on the LLE secondary to lytic lesions and plan for ortho consult. Patient in agreement with this. Reports pain not well controlled even with IV morphine and prn oxycodone. Discussed starting morphine ER (recommended by oncology) as well as increasing breakthrough IV morphine dose. Ms. Pickett is understandably very tearful and emotional about pain and states that she would like to go home. She is concerned about cost and how to get to treatment. Questions and concerns addressed with patient, , and other family. She also expressed concern for constipation; plan for bowel regimen. Family History: Unchanged from Admission Social History: Unchanged from Admission Past Medical History: Unchanged from Admission Objective Active Medications: Atorvastatin Calcium (Lipitor*) 10 mg PO DAILY [facility] PRN Reason: Protocol Last Admin: 06/04/17 08:31 Dose: 10 mg Cyclobenzaprine HCl (Flexeril Tab*) 10 mg PO TID PRN PRN Reason: SPASMS - MUSCLE Diltiazem HCl (Cardizem Cd Cap*) 180 mg PO 1500 [facility] Docusate Sodium (Colace Cap*) 100 mg PO BID PRN PRN Reason: CONSTIPATION Gabapentin (Neurontin Cap(*)) 300 mg PO BID@0900,1500 [facility] Last Admin: 06/04/17 08:33 Dose: 300 mg Gabapentin (Neurontin Cap(*)) 600 mg PO BEDTIME [facility] Last Admin: 06/03/17 22:05 Dose: 600 mg Lidocaine (Lidoderm 5% Patch*) 1 patch TRANSDERM DAILY [facility] Last Admin: 06/04/17 08:35 Dose: 1 patch Morphine Sulfate (Morphine Inj (Syringe)*) 2 mg IV Q4H PRN PRN Reason: PAIN - BREAKTHROUGH Last Admin: 06/04/17 08:31 Dose: 2 mg Morphine Sulfate (Ms Contin(*)) 15 mg PO Q12H [facility] Multivitamins/Minerals (Theragran/Minerals Tab*) 1 tab PO DAILY [facility] Last Admin: 06/04/17 08:31 Dose: 1 tab Ondansetron HCl (Zofran Inj*) 4 mg IV Q6H PRN PRN Reason: NAUSEA/VOMITING Oxycodone HCl (Roxycodone Tab*) 5 mg PO Q6H PRN PRN Reason: PAIN Last Admin: 06/03/17 22:06 Dose: 5 mg Pharmacy Profile Note (Lidocaine Patch Remove*) 1 note N/A 2100 [facility] Last Admin: 06/03/17 22:15 Dose: Not Given Senna (Senokot Tab*) 1 tab PO BID PRN PRN Reason: CONSTIPATION Vital Signs - 8 hr 06/04/17 06/04/17 06/04/17 03:46 04:09 06:38 Temperature 98.6 F Pulse Rate 82 Respiratory 12 18 20 Rate Blood Pressure 124/46 (mmHg) O2 Sat by Pulse 90 Oximetry 06/04/17 06/04/17 06/04/17 07:42 08:00 08:31 Temperature 97.4 F Pulse Rate 81 Respiratory 16 16 16 Rate Blood Pressure 126/54 (mmHg) O2 Sat by Pulse 94 Oximetry 06/04/17 08:33 Temperature Pulse Rate Respiratory 16 Rate Blood Pressure (mmHg) O2 Sat by Pulse Oximetry Oxygen Devices in Use Now: None Appearance: Female patient, sitting on edge of bed, NAD Eyes: PERRLA Ears/Nose/Mouth/Throat: Clear Oropharnyx, Mucous Membranes Moist Neck: NL Appearance and Movements; NL JVP Respiratory: Symmetrical Chest Expansion and Respiratory Effort, Clear to Auscultation Cardiovascular: NL Sounds; No Murmurs; No JVD, RRR Abdominal: - - tenderness to palpation over left flank and across mid abdomen, BS normoactive Extremities: No Edema, No Clubbing, Cyanosis, - - LLE movement limited secondary to pain Neurological: Alert and Oriented x 3 Lines/Tubes/Other Access: Clean, Dry and Intact Peripheral IV Nutrition: Taking PO's Result Diagrams: 06/04/17 06:39 06/04/17 06:39 Assess/Plan/Problems-Billing Assessment: Ms. Pickett is a 66 yo female with a PMH significant for HTN, hypercholesterolemia , borderline diabetes, and macular degeneration who was referred to the ED on after lytic lesion was noted on XR and was found to have concern for metastatic disease with multiple sites of involvement. - Patient Problems (1) Metastatic disease Code(s): C79.9 - SECONDARY MALIGNANT NEOPLASM OF UNSPECIFIED SITE Comment: Patient presented with LLE pain that is secondary to lytic lesion of left hemipelvis. Also with mass in left rib, multiple right lung lesions, abdominal wall lesion, bone marrow changes and suspected metastatic disease of lumbar spine, and subcarinal lymph node Appreciate oncology consult and recommendations Plan for US guided biopsy of abdominal lesion. (2) Pain of left lower extremity Code(s): M79.605 - PAIN IN LEFT LEG Comment: Secondary to lytic lesions Orthopedic consult requested to see if there are surgical options for the patient. Patient made NWB until seen by ortho. Oncology recommended start of morphine SR. Increase breakthrough IV morphine dose and continue use of oxycodone prn. (3) Neuropathic pain Comment: Secondary to DDD and metastatic disease Continue gabapentin at this time. (4) HTN (hypertension) Code(s): I10 - ESSENTIAL (PRIMARY) HYPERTENSION Comment: Normotensive Continue home diltiazem (5) Type 2 diabetes mellitus Comment: Reports borderline diabetes, diet controlled HgbA1c 6.3 (6) Hypercholesteremia Code(s): E78.00 - PURE HYPERCHOLESTEROLEMIA, UNSPECIFIED Comment: Continue statin. (7) Macular degeneration Code(s): H35.30 - UNSPECIFIED MACULAR DEGENERATION Comment: Continue preservision vitamin. (8) DVT prophylaxis Comment: SQ heparin, currently on hold in anticipation of biopsy SCDs Status and Disposition: Inpatient admission. Anticipate LOS 3-5 days.
--- NOTE | 2017-06-04 10:04 | CONSULT ---
Consultation - Reason for Consultation Reason for Consultation: multiple masses Ordering Provider: Pauline Tam Chief Complaint: hip pain History of Present Illness: 66 yo F w a 50 pk/yr history of smoking (quit 1 yr ago) presenting with progressive hip pain and found to have a massive lytic lesion in the left hip as well as lung and bony disease. Katherine reports that starting in January she developed lower back and left hip pain. She is a bit vague on the time course but she reports that she was diagnosed with sciatica. She had a back xray which showed DJD and was referred to neurosurgery. A lumbar spine MRI was read as DJD with some fatty marrow replacement. She was sent for a left hip xray on the day of admission which revealed a large left ileum and the acetabular roof. She was referred to the ER and had a CT C/A/P with contrast and left pelvis without contrast. I have personally reviewed these which are notable for emphysema, a dominant spiculated lesion in the right lung as well as 3 peripheral lesions, a large, expansive left rib lesion (~7 cm), a 2 cm right anterior abdominal wall lesion, and a the massive, destructive left hip lesion. We are being consulted for this. She reports that she noticed the abdominal wall lesion several weeks ago and it was felt to be a lipoma. She notes left rib and hip pain, and is essentially non-weightbearing at this point 2/2 pain. She has lost 10 pounds in the last several weeks. She has a cough but can not clearly state if this is old or new. She denies any new headaches (history of migraines) or diplopia. She denies nausea, vomiting, diarrhea, bloody stools, or focal neurological symptoms other than decreased strength in her left leg that she relates to pain. At this point she states that she is not sure if she is willing to accept any treatment but is agreeable to moving forward with biopsy. Allergies/Medications Medication: Atorvastatin Calcium (Lipitor*) 10 mg PO DAILY [facility] PRN Reason: Protocol Last Admin: 06/04/17 08:31 Dose: 10 mg Cyclobenzaprine HCl (Flexeril Tab*) 10 mg PO TID PRN PRN Reason: SPASMS - MUSCLE Diltiazem HCl (Cardizem Cd Cap*) 180 mg PO 1500 [facility] Docusate Sodium (Colace Cap*) 100 mg PO BID PRN PRN Reason: CONSTIPATION Gabapentin (Neurontin Cap(*)) 300 mg PO BID@0900,1500 [facility] Last Admin: 06/04/17 08:33 Dose: 300 mg Gabapentin (Neurontin Cap(*)) 600 mg PO BEDTIME [facility] Last Admin: 06/03/17 22:05 Dose: 600 mg Lidocaine (Lidoderm 5% Patch*) 1 patch TRANSDERM DAILY [facility] Last Admin: 06/04/17 08:35 Dose: 1 patch Morphine Sulfate (Morphine Inj (Syringe)*) 2 mg IV Q4H PRN PRN Reason: PAIN - BREAKTHROUGH Last Admin: 06/04/17 08:31 Dose: 2 mg Morphine Sulfate (Ms Contin(*)) 15 mg PO Q12H [facility] Multivitamins/Minerals (Theragran/Minerals Tab*) 1 tab PO DAILY [facility] Last Admin: 06/04/17 08:31 Dose: 1 tab Ondansetron HCl (Zofran Inj*) 4 mg IV Q6H PRN PRN Reason: NAUSEA/VOMITING Oxycodone HCl (Roxycodone Tab*) 5 mg PO Q6H PRN PRN Reason: PAIN Last Admin: 06/03/17 22:06 Dose: 5 mg Pharmacy Profile Note (Lidocaine Patch Remove*) 1 note N/A 2100 [facility] Last Admin: 06/03/17 22:15 Dose: Not Given Senna (Senokot Tab*) 1 tab PO BID PRN PRN Reason: CONSTIPATION Allergies/Adverse Reactions: Allergies Allergy/AdvReac Type Severity Reaction Status Date / Time acetaminophen Allergy Hives Verified 06/03/17 13:26 [From Darvocet-N] Penicillins Allergy Unknown Verified 06/04/17 07:15 Reaction Details propoxyphene Allergy Hives Verified 06/03/17 13:26 [From Darvocet-N] Sulfa (Sulfonamide Allergy Unknown Verified 06/03/17 13:26 Antibiotics) Reaction Details erythromycin base AdvReac GI Upset Verified 06/03/17 19:10 History - Past Medical History Other History: HTN. hyperlipidemia. migraines. dry macular degeneration. likely COPD (based on emphysema on scan) - Family History Other Family History: sister: breast cancer. sister: thyroid and breast cancer. sister: metastatic cancer unclear primary - Social History Hx Alcohol Use: No Hx Tobacco Use: Yes - quit 1 yr ago, 50 pk yr h/o Marital Status: Review of Systems - Review of Systems Constitutional Symptoms: Positive: Weight Loss, Fatigue Dermatology: Positive: Normal HEENT: Positive: Normal Eyes: Positive: Normal Thyroid: Positive: Normal Pulmonary: Positive: Cough Cardiology: Positive: Normal Gastroenterology: Positive: Normal Genital - Urinary: Positive: Normal Musculoskeletal: Positive: Other - see HPI Endocrinology: Positive: Normal Neurology: Positive: Migraines Psychiatry: Positive: Normal Physical Exam - Physical Exam Physical Examination: Vital Signs Temp Pulse Resp BP Pulse Ox 97.4 F 81 16 126/54 94 06/04/17 07:42 06/04/17 07:42 06/04/17 08:33 06/04/17 07:42 06/04/17 07:42 lying flat, uncomfortable appearing perr eomi op moist CTA bl s1 s2 nl soft 2 cm palpable mass, right of midline upper abdomen ttp over posterior left ribs without clear mass no staci no le edema ttp over left hip, limited ROM 2/2 pain did not ambulate 5/5 strength right lower and bilateral upper. left limited by pain A+0 x 3 Results - Lab Results Lab Results: 06/04/17 06/04/17 06:39 06:39 WBC 7.5 RBC 3.65 L Hgb 10.9 L Hct 32 L MCV 88 MCH 30 MCHC 34 RDW 14 Plt Count 519 H MPV 7 L Neut % (Auto) 66.7 Lymph % (Auto) 16.3 L Clarke % (Auto) 14.4 H Eos % (Auto) 2.1 Baso % (Auto) 0.5 Absolute Neuts (auto) 5.0 Absolute Lymphs (auto) 1.2 Absolute Monos (auto) 1.1 H Absolute Eos (auto) 0.2 Absolute Basos (auto) 0 Absolute Nucleated RBC 0 Nucleated RBC % 0 Sodium 134 Potassium 4.4 Chloride 100 L Carbon Dioxide 27 Anion Gap 7 BUN 14 Creatinine 0.58 Est GFR ( Amer) 133.4 Est GFR (Non-Af Amer) 103.7 BUN/Creatinine Ratio 24.1 H Glucose 105 H Calcium 11.7 H - Radiology Radiology Results: CT C/A/P : personal review, large, expansile mass in left rib, several right sided lung lesions with a dominant 2.5 cm spiculated lesion, mediastinal STACI, emphysema, 2 cm abdominal wall lesion, and very large, destructive left hemipelvis lesion Assessment and Plan Impression: 66 yo F w a heavy tobacco use history now with diffuse disease suspicious for a lung primary. I discussed this with Katherine and her family at length. I have recommended biopsy to confirm diagnosis. We discussed that the treatment options vary greatly depending on diagnosis, but could include palliative radiation therapy to help with her hip pain. I would recommend orthopedics consultation to see if there is any procedure to stabilize her hip (which I doubt) and to see if it is safe for her to weight bear. I have taken the liberty of asking Dr. Stevens to try to biopsy her abdominal wall lesion. If this is unsuccessful I would recommend US guided biopsy of her left rib lesion (I have held her heparin and ASA anticipating we might need this). I have also added a long acting narcotic, as this is clearly a very painful process and she is on relatively minimal pain control at this point. In terms of her hypercalcemia of malignancy I have ordered a dose of zometa and started her on IV fluids. Thank you for this consultation and we will continue to follow with you.
[2017-06-04] MEDS ORDERED: Zoledronic Acid* 4 MG in NS 0.9% 100 ML* 95 ML IVPB ONE (10:24)
[2017-06-04] MEDS: Morphine TAB Extended Release (*) 15 MG TAB.ER PO SCH ×2 (10:52→21:26)
[2017-06-04] MEDS: Diazepam TAB(*) 5 MG PO PRN (10:52)
[2017-06-04] MEDS: Polyethylene Glycol 3350* 17 GM PACKET PO SCH (10:53)
[2017-06-04] MEDS: NS 0.9% 1000 ML* 1,000 ML IV SCH ×3 (11:07→21:00)
[2017-06-04] MEDS: oxyCODONE TAB* 5 MG TAB PO PRN (15:33)
[2017-06-04] MEDS: Diltiazem CD CAP* 180 MG PO SCH (15:34)
[2017-06-04] MEDS: Lidocaine Patch REMOVE* 1 NOTE MISC SCH (21:26)
[2017-06-05] MEDS ORDERED: Acetaminophen TAB* 325 MG PO PRN (03:12)
--- NOTE | 2017-06-05 03:13 | PN ---
Progress Note - Progress Note Date of Service: 06/05/17 Note: Patient now febrile, requiring O2. No signs of distress. WIll order cxr, blood cx and u/a.
[2017-06-05] MEDS ORDERED: Ibuprofen TAB* 600 MG PO ONE (03:17)
[2017-06-05] MEDS: NS 0.9% 1000 ML* 1,000 ML IV SCH ×2 (03:40→10:18)
[2017-06-05 04:03] LABS: ABS Basophils 0.1 10^3/ul (0-0.2); ABS Eosinophils 0.1 10^3/ul (0-0.6); ABS Lymphocytes 0.8 10^3/ul (1.0-4.8); ABS Monocytes 1.1 10^3/ul (0-0.8); ABS Neutrophils 5.9 10^3/ul (1.5-7.7); ABS Nucleated RBC 0 10^3/ul; Eosinophil % 1.6 % (0-6); Hematocrit 28 % (35-47); Hemoglobin 9.2 g/dl (12.0-16.0); Lymphocyte % 10.2 % (25-47); Mean Corpuscular HGB Conc 33 g/dl (31-36); Mean Corpuscular Hemoglobin 29 pg (27-31); Mean Corpuscular Volume 89 fL (80-97); Nucleated Red Blood Cells % 0; Platelet Count 503 10^3/ul (150-450); Red Blood Count 3.12 10^6/ul (4.0-5.4); Red Cell Distribution Width 15 % (10.5-15)
--- NOTE | 2017-06-05 06:33 | CONS ---
CONSULTATION NOTE: DATE OF CONSULT: 06/04/17 - ROOM #411 REASON FOR CONSULT: Left acetabulum tumor, concern for impending pathologic fracture. HISTORY OF PRESENT ILLNESS: The patient is a 66-year-old woman, currently admitted for a workup of metastatic cancer, who initially presented yesterday as an outpatient with a complaint of left hip pain. The patient tells me today that she has had pain about the left hip since approximately December 2016, five months ago. Overtime, she started using a walker and a cane to walk. Even ambulating with those assistive devices became very difficult on approximately 04/18/17. For the past almost 2 months, she has mostly been bed and chair bound, with any type of walking being very painful to her. The patient describes a pain about the lateral and posterior left hip. She denies any radiation of that pain distal to the knee. She describes having difficulty getting into a comfortable position even in bed or in a chair. She acknowledges pain throughout the body including in the ribs and back. The patient reported to hospitalist service that she had pain for 3 months, starting with a fall. The patient has been treating her pain with gabapentin and oxycodone. The patient had been seen by the [facility] of [facility] complaining of lower back pain and had a lumbar spine MRI ordered on 05/30/17. The patient had an x-ray on June 03 that was concerning for a large lytic lesion about the left hemipelvis. The patient was referred from outpatient radiography to the emergency department. She then had a chest, abdomen, and pelvis CT which showed multiple masses presumably tumors throughout her body. A 1.9 cm enhancing subcarinal lymph node, nodule in the right lower lobe of the lungs and the right middle lobe of the lungs. A lytic rib lesion. Also abdominal wall mass. Radiologist thought findings consistent with metastatic disease of a lung primary tumor. PAST MEDICAL HISTORY: Hypertension, borderline diabetes, hypercholesterolemia, macular degeneration. HOME MEDICATIONS: 1. Flaxseed oil. 2. Cod liver oil. 3. Aspirin 81 mg p.o. q.h.s. 4. Biotin. 5. Sumatriptan. 6. Diltiazem. 7. Pravastatin. 8. Gabapentin. 9. Diazepam p.r.n. 10. Oxycodone p.r.n. ALLERGIES: PENICILLIN (hives), SULFA DRUGS (blood pressure elevation), ERYTHROMYCIN (stomach upset), DARVON, SEAWEED. SOCIAL HISTORY: A 30-year history of smoking, quit in April 2016. Retired, formerly worker at [employer]. and lives with her . REVIEW OF SYSTEMS: The patient admits to weakness and night sweats. She reported to the hospitalist service that her weight is roughly unchanged over the last several months. The patient acknowledges pain throughout her body. She denies numbness and tingling in the left lower extremity. PHYSICAL EXAM: At 11:05 a.m. on 06/04/17, the patient had a temperature of 97.8 degree Fahrenheit, axillary, pulse rate 86, blood pressure 138/64, respiratory rate 16, and O2 saturation 94% on room air. The patient was comfortably sleeping when I approached her. I aroused her. The patient was sleeping on her right side in a position. The patient described only being comfortable with a pillow between her legs. I asked that the patient convert to a supine position. This took some time and difficulty. She certainly had discomfort transitioning to a supine position and did so very slowly. Appropriate mood and affect and dress and hygiene for a hospitalized patient. Gait was not assessed. Well coordinated bilateral upper and lower extremities, although minimizing movements. Left hip exam revealed skin intact. No bruising. Generalized mild tenderness to palpation about the proximal femur. Possibly some soft tissue swelling just posterior to the proximal femur. Mild. Passive range of motion of the left hip was 110 degrees of flexion, 20 degrees of external, and 15 degrees of internal rotation. The patient had pain with terminal range of motion. She might have been able to rotate her hip more, but had significant discomfort. Neurovascularly intact distally. The patient had pain with straight leg raise maneuver, but is more focused about the left hip than radiating down the posterior aspect of the lower extremity. DIAGNOSTIC STUDIES/LAB DATA: Imaging: Reviewed x-rays of the left hip and pelvis. They demonstrate significant lucency of the left hemipelvis about the left acetabulum. Also reviewed CT pelvis from 06/03/17. This demonstrates significant bony loss of the acetabulum, and ilium. A significant amount of the roof of the acetabulum is no longer there. No clear fracture, but clear replacement of bone with other tissue. There is a significantly large surrounding soft tissue mass. Radiology measured mass at 11.4 x 8.2 x 10.0 cm. ASSESSMENT: 1. Left hemipelvis mass, lytic, involving acetabulum and ilium. 2. Likely metastatic disease throughout the body. 3. Impending or high risk for pathologic fracture, left acetabulum and/or iliac crest. PLAN/RECOMMENDATIONS: 1. I niall out the relevant anatomy for the patient. 2. It is not surprising at all that the patient has had significant pain ambulating even with assistive devices for the last 2 months. 3. I recommend minimizing weightbearing left lower extremity, and for the patient to heed, the pain that has prevented her from left lower extremity weightbearing as a left acetabulum fracture, could certainly happen. 4. Continue a tumor workup. The patient reports that she had a biopsy about the chest this afternoon. 5. In terms of surgical options, the patient would require a total hip arthroplasty with a tumor prosthesis. However, she might not have sufficient bone for such an implant. This would not be a procedure done at [facility]. It would require a tumor subspecialty orthopedic surgeon at an [facility]. This surgeon would determine the feasibility of such an operation given the significant infiltration of bone that has already occurred. 6. I will discuss with one of my hip arthroplasty colleagues here and will return to see the patient again on 06/06/17. [id number]/[facility] #: [id number] DUC
[2017-06-05] MEDS: oxyCODONE TAB* 5 MG TAB PO PRN ×2 (07:27→18:12)
--- NOTE | 2017-06-05 07:55 | RAD ---
INDICATION: Fever and hypoxia COMPARISON: Most recent chest x-ray available for comparison is dated April 04, 2005 TECHNIQUE: Single AP portable view of the chest was obtained. FINDINGS: Image quality is compromised due to the relative inferiority of a portable chest x-ray. The heart and mediastinum exhibit normal size and contour. The pulmonary vasculature appears to be engorged and indistinct. Along the lateral aspect of the left lung is a density that measures 2.8 cm in thickness and approximately 11.8 cm in greatest cephalocaudal dimension. The morphology of this density indicates a pleural mass or collection. The lungs are otherwise grossly clear. Visualized bones are normal for the patient's age. IMPRESSION: 1. Interval appearance of what appears to be a pleural-based density measuring 2.8 cm in thickness and up to 11.8 cm in craniocaudal dimension. 2. In the correct clinical setting chest x-ray findings could be compatible with vascular congestion/pulmonary edema.
--- NOTE | 2017-06-05 08:26 | PN ---
Progress Note - Progress Note Date of Service: 06/05/17 SOAP: Subjective: pain somewhat better with long acting but still 10/10 with any movements. Objective: Vital Signs Temp Pulse Resp BP Pulse Ox 97.9 F 82 16 123/51 97 06/05/17 08:12 06/05/17 08:12 06/05/17 08:12 06/05/17 08:12 06/05/17 08:12 lying in bed, more comfortable appearing perr eomi op dry cta bl s1 s2 nl soft nt +bs limited ROM of left hip 2/2 pain A+O x 3 Laboratory Results - last 24 hr 06/05/17 03:45 WBC 8.0 RBC 3.12 L Hgb 9.2 L Hct 28 L MCV 89 MCH 29 MCHC 33 RDW 15 Plt Count 503 H MPV 7.0 L Neut % (Auto) 74.0 Lymph % (Auto) 10.2 L [place] % (Auto) 13.5 H Eos % (Auto) 1.6 Baso % (Auto) 0.7 Absolute Neuts (auto) 5.9 Absolute Lymphs (auto) 0.8 L Absolute Monos (auto) 1.1 H Absolute Eos (auto) 0.1 Absolute Basos (auto) 0.1 Absolute Nucleated RBC 0 Nucleated RBC % 0 prelim path per verbal report Dr. Stevens: nonsmall cell lung cancer, other stains pending Atorvastatin Calcium (Lipitor*) 10 mg PO DAILY LISA PRN Reason: Protocol Last Admin: 06/04/17 08:31 Dose: 10 mg Cyclobenzaprine HCl (Flexeril Tab*) 10 mg PO TID PRN PRN Reason: SPASMS - MUSCLE Diazepam (Valium Tab(*)) 2.5 mg PO Q8H PRN PRN Reason: ANXIETY Last Admin: 06/04/17 10:52 Dose: 2.5 mg Diltiazem HCl (Cardizem Cd Cap*) 180 mg PO 1500 LISA Last Admin: 06/04/17 15:34 Dose: 180 mg Docusate Sodium (Colace Cap*) 100 mg PO BID PRN PRN Reason: CONSTIPATION Gabapentin (Neurontin Cap(*)) 300 mg PO BID@0900,1500 LISA Last Admin: 06/04/17 15:34 Dose: 300 mg Gabapentin (Neurontin Cap(*)) 600 mg PO BEDTIME LISA Last Admin: 06/04/17 21:24 Dose: 600 mg Sodium Chloride (Ns 0.9% 1000 Ml*) 1,000 mls @ 150 mls/hr IV PER RATE [facility] Last Admin: 06/05/17 03:40 Dose: 150 mls/hr Lidocaine (Lidoderm 5% Patch*) 1 patch TRANSDERM DAILY [facility] Last Admin: 06/04/17 08:35 Dose: 1 patch Morphine Sulfate (Ms Contin(*)) 15 mg PO Q12H [facility] Last Admin: 06/04/17 21:26 Dose: 15 mg Morphine Sulfate (Morphine Inj (Syringe)*) 4 mg IV Q4H PRN PRN Reason: PAIN - BREAKTHROUGH Multivitamins/Minerals (Theragran/Minerals Tab*) 1 tab PO DAILY [facility] Last Admin: 06/04/17 08:31 Dose: 1 tab Ondansetron HCl (Zofran Inj*) 4 mg IV Q6H PRN PRN Reason: NAUSEA/VOMITING Oxycodone HCl (Roxycodone Tab*) 5 mg PO Q6H PRN PRN Reason: PAIN Last Admin: 06/05/17 07:27 Dose: 5 mg Pharmacy Profile Note (Lidocaine Patch Remove*) 1 note N/A 2100 [facility] Last Admin: 06/04/17 21:26 Dose: 1 note Polyethylene Glycol/Electrolytes (Miralax*) 17 gm PO DAILY [facility] Last Admin: 06/04/17 10:53 Dose: 17 gm Senna (Senokot Tab*) 1 tab PO BID PRN PRN Reason: CONSTIPATION Assessment: 66 yo F w diffusely metastatic nonsmall cell lung cancer. I have discussed this with her at length. She is VERY clear that she does not want systemic therapy for her disease, nor aggressive measures for her hip. Given this I do not think it makes sense to consider a major hip replacement surgery. I have asked Dr. Garcia to see her in consultation regarding palliative radiation therapy. She is in agreement with this. She will likely go home with hospice after this, though did agree to at least think a little more about systemic therapy. In terms of her pain control, I would like to increase her short acting today to 10 mg. I have ordered a calcium level this am for follow up.
[2017-06-05] MEDS: Polyethylene Glycol 3350* 17 GM PACKET PO SCH (08:43)
[2017-06-05] MEDS: Atorvastatin* 10 MG TAB PO SCH (08:43)
[2017-06-05] MEDS: Gabapentin CAP(*) 300 MG PO SCH ×3 (08:43→21:47)
[2017-06-05] MEDS: Lidocaine PATCH 5%* 1 PATCH TRANSDERM SCH (08:43)
[2017-06-05] MEDS: Multivitamins/Minerals TAB PO SCH (08:43)
[2017-06-05] MEDS: Morphine TAB Extended Release (*) 15 MG TAB.ER PO SCH ×2 (09:13→21:48)
[2017-06-05 09:55] LABS: EGFR Non-African American 97.8 (>60)
[2017-06-05] MEDS: Morphine INJ* 2 MG/ML 1 ML CARPUJECT IV PRN (12:34)
[2017-06-05] MEDS: Ibuprofen TAB* 600 MG PO PRN ×2 (14:15→21:47)
--- NOTE | 2017-06-05 15:00 | PN ---
Subjective Date of Service: 06/05/17 Interval History: Ms. Pickett feels that her pain is well controlled though she has not moved around too much today. She denies other complaint. Family History: Unchanged from Admission Social History: Unchanged from Admission Past Medical History: Unchanged from Admission Objective Active Medications: Atorvastatin Calcium (Lipitor*) 10 mg PO DAILY LISA Cyclobenzaprine HCl (Flexeril Tab*) 10 mg PO TID PRN Diazepam (Valium Tab(*)) 2.5 mg PO Q8H PRN Diltiazem HCl (Cardizem Cd Cap*) 180 mg PO 1500 LISA Docusate Sodium (Colace Cap*) 100 mg PO BID PRN Gabapentin (Neurontin Cap(*)) 300 mg PO BID@0900,1500 LISA Gabapentin (Neurontin Cap(*)) 600 mg PO BEDTIME LISA Ibuprofen (Motrin Tab*) 600 mg PO Q8H PRN Lidocaine (Lidoderm 5% Patch*) 1 patch TRANSDERM DAILY LISA Morphine Sulfate (Ms Contin(*)) 15 mg PO Q12H LISA Morphine Sulfate (Morphine Inj (Syringe)*) 4 mg IV Q4H PRN Multivitamins/Minerals (Theragran/Minerals Tab*) 1 tab PO DAILY LISA Ondansetron HCl (Zofran Inj*) 4 mg IV Q6H PRN Oxycodone HCl (Roxycodone Tab*) 10 mg PO Q6H PRN Pharmacy Profile Note (Lidocaine Patch Remove*) 1 note N/A 2100 LISA Polyethylene Glycol/Electrolytes (Miralax*) 17 gm PO DAILY LISA Senna (Senokot Tab*) 1 tab PO BID PRN Vital Signs: Temp Pulse Resp BP Pulse Ox 97.9 F 82 16 123/51 97 06/05/17 08:12 06/05/17 08:12 06/05/17 14:17 06/05/17 08:12 06/05/17 08:12 Oxygen Devices in Use Now: Nasal Cannula Appearance: Female lying in bed in NAD Eyes: No Scleral Icterus Neck: NL Appearance and Movements; NL JVP Respiratory: Symmetrical Chest Expansion and Respiratory Effort, Clear to Auscultation Cardiovascular: NL Sounds; No Murmurs; No JVD, No Edema Abdominal: NL Sounds; No Tenderness; No Distention Extremities: No Edema Skin: No Rash or Ulcers Neurological: Alert and Oriented x 3, NL Muscle Strength and Tone Nutrition: Taking PO's Result Diagrams: 06/05/17 03:45 06/05/17 09:29 Assess/Plan/Problems-Billing Assessment: Ms. Pickett is a 66 yo female with a PMH significant for HTN, hypercholesterolemia , borderline diabetes, and macular degeneration who was referred to the ED on after lytic lesion was noted on XR and was found to have concern for metastatic disease with multiple sites of involvement. - Patient Problems (1) Metastatic disease Current Visit: Yes Status: Acute Code(s): C79.9 - SECONDARY MALIGNANT NEOPLASM OF UNSPECIFIED SITE SNOMED Code(s): 767391574 Comment: - Biopsy confirmed diffusely metastatic nonsmall cell lung cancer. - Appreciate oncology consult and recommendations. Plan for palliative radiation and hospice as patient does not want aggressive interventions. - Continue MS contin with oxycodone and morphine IV for breakthrough pain. Flexeril and valium available prn as well. (2) Neuropathic pain Comment: - Continue gabapentin. (3) HTN (hypertension) Comment: - Normotensive - Continue home diltiazem (4) Macular degeneration Comment: - Continue preservision vitamin. (5) DVT prophylaxis Comment: - SCDs as tolerated. Status and Disposition: Inpatient admission. Palliative radiation and hospice consult pending. Patient would like to return home with hospice.
--- NOTE | 2017-06-05 15:14 | RAD ---
Indication: Lytic lesion at the LEFT pelvis. Possible infection possible mass. Fall 3 months ago with LEFT hip pain. Comparison: June 03, 2017 CT and radiographic series of the LEFT hip. Technique: Radiation simulation CT. 2.5 mm axial sections were obtained from the L2 level through the proximal femurs without IV contrast. Residual oral contrast from the June 03, 2017 CT. Report: As described in the previous diagnostic radiograph and CT exams there is a large expansile lytic lesion of the LEFT iliac bone and acetabulum with soft tissue mass extending both medially and laterally. Severe loss of cortical and trabecular bone at the LEFT iliac wing and acetabulum. No displaced fracture evident. Moderate LEFT hip joint effusion. Negative for retroperitoneal or mesenteric lymphadenopathy by short axis size criteria. 1.7 cm short axis RIGHT para midline anterior abdominal wall subcutaneous tissue plane soft tissue density mass above the level of the umbilicus concerning for a metastasis. IMPRESSION: Radiation planning CT pelvis as described.
[2017-06-05] MEDS: Diltiazem CD CAP* 180 MG PO SCH (15:34)
[2017-06-05] MEDS: Lidocaine Patch REMOVE* 1 NOTE MISC SCH (22:25)
[2017-06-06 00:43] LABS: Urine Appearance Clear; Urine Blood 3+ (Negative); Urine Color Yellow; Urine Ketones Negative (Negative); Urine Protein 1+(30 mg/dL) (Negative); Urine Specific Gravity 1.018 (1.010-1.030); Urine Urobilinogen Negative (Negative)
[2017-06-06] MEDS: oxyCODONE TAB* 5 MG TAB PO PRN ×2 (05:58→18:01)
[2017-06-06] MEDS: Ibuprofen TAB* 600 MG PO PRN (06:49)
[2017-06-06] MEDS: Multivitamins/Minerals TAB PO SCH (08:55)
[2017-06-06] MEDS: Morphine TAB Extended Release (*) 15 MG TAB.ER PO SCH ×2 (08:55→21:05)
[2017-06-06] MEDS: Lidocaine PATCH 5%* 1 PATCH TRANSDERM SCH (08:55)
[2017-06-06] MEDS: Cyclobenzaprine TAB* 10 MG PO PRN ×2 (08:56→21:12)
[2017-06-06] MEDS: Polyethylene Glycol 3350* 17 GM PACKET PO SCH (09:00)
[2017-06-06] MEDS: Gabapentin CAP(*) 300 MG PO SCH ×3 (09:00→21:03)
[2017-06-06] MEDS: Diltiazem CD CAP* 180 MG PO SCH (15:27)
--- NOTE | 2017-06-06 15:56 | PN ---
Subjective Date of Service: 06/06/17 Interval History: Ms. Pickett is resting comfortably. She awakens easily to voice and denies complaint. Family History: Unchanged from Admission Social History: Unchanged from Admission Past Medical History: Unchanged from Admission Objective Active Medications: Cyclobenzaprine HCl (Flexeril Tab*) 10 mg PO TID PRN Diazepam (Valium Tab(*)) 2.5 mg PO Q8H PRN Diltiazem HCl (Cardizem Cd Cap*) 180 mg PO 1500 LISA Docusate Sodium (Colace Cap*) 100 mg PO BID PRN Gabapentin (Neurontin Cap(*)) 300 mg PO BID@0900,1500 LISA Gabapentin (Neurontin Cap(*)) 600 mg PO BEDTIME LISA Ibuprofen (Motrin Tab*) 600 mg PO Q8H PRN Lidocaine (Lidoderm 5% Patch*) 1 patch TRANSDERM DAILY LISA Morphine Sulfate (Ms Contin(*)) 15 mg PO Q12H LISA Morphine Sulfate (Morphine Inj (Syringe)*) 4 mg IV Q4H PRN Multivitamins/Minerals (Theragran/Minerals Tab*) 1 tab PO DAILY LISA Ondansetron HCl (Zofran Inj*) 4 mg IV Q6H PRN Oxycodone HCl (Roxycodone Tab*) 10 mg PO Q6H PRN Pharmacy Profile Note (Lidocaine Patch Remove*) 1 note N/A 2100 LISA Polyethylene Glycol/Electrolytes (Miralax*) 17 gm PO DAILY LISA Senna (Senokot Tab*) 1 tab PO BID PRN Vital Signs: Temp Pulse Resp BP Pulse Ox 98.5 F 83 16 128/62 98 06/06/17 15:30 06/06/17 15:30 06/06/17 15:30 06/06/17 15:30 06/06/17 15:30 Oxygen Devices in Use Now: Nasal Cannula Appearance: Female lying in bed in NAD Eyes: No Scleral Icterus Ears/Nose/Mouth/Throat: Mucous Membranes Moist Neck: Trachea Midline Respiratory: Symmetrical Chest Expansion and Respiratory Effort Extremities: No Edema Skin: No Rash or Ulcers Neurological: NL Muscle Strength and Tone, - - Alert, awakens to voice Nutrition: Taking PO's Result Diagrams: 06/05/17 03:45 06/05/17 09:29 Microbiology and Other Data: . Assess/Plan/Problems-Billing Assessment: Ms. Pickett is a 66 yo female with a PMH significant for HTN, hypercholesterolemia , borderline diabetes, and macular degeneration who was referred to the ED on after lytic lesion was noted on XR and was found to have concern for metastatic disease with multiple sites of involvement. - Patient Problems (1) Metastatic disease Current Visit: Yes Status: Acute Code(s): C79.9 - SECONDARY MALIGNANT NEOPLASM OF UNSPECIFIED SITE SNOMED Code(s): 203786224 Comment: - Biopsy confirmed diffusely metastatic nonsmall cell lung cancer. - Appreciate oncology consult and recommendations. Plan for palliative radiation and hospice as patient does not want aggressive interventions. Radiation to start Friday and continue for 5 day course. - Continue MS contin with oxycodone and morphine IV for breakthrough pain. Flexeril and valium available prn as well. (2) Neuropathic pain Comment: - Continue gabapentin. (3) HTN (hypertension) Comment: - Normotensive - Continue home diltiazem (4) Macular degeneration Comment: - Continue preservision vitamin. (5) DVT prophylaxis Comment: - SCDs as tolerated. Status and Disposition: Inpatient admission. Plan for home with hospice after radiation is completed.
[2017-06-06] MEDS ORDERED: Oral Rinse (Biotene)(NF) 237 ML or 473 ML ORAL RINSE BTL MT SCH (17:00)
--- NOTE | 2017-06-06 18:55 | PN ---
Progress Note - Progress Note Date of Service: 06/06/17 SOAP: Subjective: I just stopped by to see if the patient had any questions for me. It seems that the Hospitalist & Oncology teams have a firm plan in place for radiation and pain medications to attempt to control the pain. Friend visiting with patient. Objective: Deferred. Patient tired and barely able to hold eyes open. Assessment: L ilium/acetabulum metastases from non-small cell lung cancer with impending pathologic fracture and pain Plan: - I wished the patient well. - If she were to become interested and a candidate for surgical intervention, I would recommend that the patient see an oncologic orthopaedic surgeon. I recommended Dr. Méndez in [place]. She would require a total hip arthroplasty with a large tumor prosthesis, though I am not sure this would be feasible given the current loss of bone. - Signing off.
[2017-06-06] MEDS: Lidocaine Patch REMOVE* 1 NOTE MISC SCH (21:06)
[2017-06-07] MEDS: Morphine INJ* 2 MG/ML 1 ML CARPUJECT IV PRN ×2 (06:19→19:00)
[2017-06-07] MEDS: Lidocaine PATCH 5%* 1 PATCH TRANSDERM SCH (09:01)
[2017-06-07] MEDS: Polyethylene Glycol 3350* 17 GM PACKET PO SCH (09:01)
[2017-06-07] MEDS: Multivitamins/Minerals TAB PO SCH (09:02)
[2017-06-07] MEDS: Morphine TAB Extended Release (*) 15 MG TAB.ER PO SCH ×2 (09:02→22:02)
[2017-06-07] MEDS: Gabapentin CAP(*) 300 MG PO SCH ×3 (09:02→22:01)
[2017-06-07] MEDS ORDERED: Polyethylene Glycol 3350* 17 GM PACKET PO PRN (11:04)
--- NOTE | 2017-06-07 12:26 | PN ---
Subjective Date of Service: 06/07/17 Interval History: Patient sedated but in significant pain when examined. Patient previously up to commode which caused significant pain and distress but was able to be accomplished while maintaining NBW on leg. Patient states that her pain is 9/10 in her hip at rest after pain medication and that she feels "loopy." Patient states she was constipated but now has had 2 BMs today without diarrhea. Patient denies F/C, N/V, abdominal pain, CP, SOB. Family History: Unchanged from Admission Social History: Unchanged from Admission Past Medical History: Unchanged from Admission Objective Active Medications: Cyclobenzaprine HCl (Flexeril Tab*) 10 mg PO TID PRN PRN Reason: SPASMS - MUSCLE Last Admin: 06/06/17 21:12 Dose: 10 mg Diazepam (Valium Tab(*)) 2.5 mg PO Q8H PRN PRN Reason: ANXIETY Last Admin: 06/04/17 10:52 Dose: 2.5 mg Diltiazem HCl (Cardizem Cd Cap*) 180 mg PO 1500 [facility] Last Admin: 06/06/17 15:27 Dose: 180 mg Docusate Sodium (Colace Cap*) 100 mg PO BID [facility] Gabapentin (Neurontin Cap(*)) 300 mg PO BID@0900,1500 [facility] Last Admin: 06/07/17 09:02 Dose: 300 mg Gabapentin (Neurontin Cap(*)) 600 mg PO BEDTIME [facility] Last Admin: 06/06/17 21:03 Dose: 600 mg Ibuprofen (Motrin Tab*) 600 mg PO Q8H PRN PRN Reason: PAIN Last Admin: 06/06/17 06:49 Dose: 600 mg Lidocaine (Lidoderm 5% Patch*) 1 patch TRANSDERM DAILY [facility] Last Admin: 06/07/17 09:01 Dose: 1 patch Morphine Sulfate (Ms Contin(*)) 15 mg PO Q12H [facility] Last Admin: 06/07/17 09:02 Dose: 15 mg Morphine Sulfate (Morphine Inj (Syringe)*) 4 mg IV Q4H PRN PRN Reason: PAIN - BREAKTHROUGH Last Admin: 06/07/17 06:19 Dose: 4 mg Multi-Ingredient Mouthwash/Gargle (Biotene Dry Mouth Oral Rinse(Nf)) 15 ml MT . DIRECTED [facility] Multivitamins/Minerals (Theragran/Minerals Tab*) 1 tab PO DAILY [facility] Last Admin: 06/07/17 09:02 Dose: 1 tab Ondansetron HCl (Zofran Inj*) 4 mg IV Q6H PRN PRN Reason: NAUSEA/VOMITING Oxycodone HCl (Roxycodone Tab*) 10 mg PO Q6H PRN PRN Reason: PAIN Last Admin: 06/06/17 18:01 Dose: 10 mg Pharmacy Profile Note (Lidocaine Patch Remove*) 1 note N/A 2100 [facility] Last Admin: 06/06/17 21:06 Dose: 1 note Polyethylene Glycol/Electrolytes (Miralax*) 17 gm PO DAILY PRN PRN Reason: CONSTIPATION Senna (Senokot Tab*) 1 tab PO BID PRN PRN Reason: CONSTIPATION Vital Signs - 8 hr 06/07/17 06/07/17 06/07/17 06:19 07:22 07:23 Temperature 98.0 F Pulse Rate 84 81 Respiratory 16 Rate Blood Pressure 102/27 106/45 (mmHg) O2 Sat by Pulse 94 94 Oximetry 06/07/17 06/07/17 06/07/17 07:58 08:00 08:32 Temperature Pulse Rate Respiratory 18 16 Rate Blood Pressure (mmHg) O2 Sat by Pulse 97 Oximetry 06/07/17 06/07/17 09:02 11:56 Temperature Pulse Rate Respiratory 16 15 Rate Blood Pressure (mmHg) O2 Sat by Pulse Oximetry Oxygen Devices in Use Now: Nasal Cannula Appearance: Patient is a 66yo female who appears stated age and is sitting in the bed in [facility]. Eyes: No Scleral Icterus, PERRLA Ears/Nose/Mouth/Throat: NL Teeth, Lips, Gums, Clear Oropharnyx, Mucous Membranes Moist Neck: NL Appearance and Movements; NL JVP, Trachea Midline Respiratory: Symmetrical Chest Expansion and Respiratory Effort, - - Diminished throughout, slight crackles in B/L Lower lobes. Cardiovascular: NL Sounds; No Murmurs; No JVD, RRR, No Edema Abdominal: NL Sounds; No Tenderness; No Distention, No Hepatosplenomegaly Lymphatic: No Cervical Adenopathy Extremities: No Edema, No Clubbing, Cyanosis Skin: No Rash or Ulcers, No Nodules or Sclerosis Neurological: Alert and Oriented x 3, - - CN II-XII intact. Result Diagrams: 06/05/17 03:45 06/05/17 09:29 Microbiology and Other Data: . Assess/Plan/Problems-Billing Assessment: Ms. Pickett is a 66 yo female with a PMH significant for HTN, hypercholesterolemia , borderline diabetes, and macular degeneration who was referred to the ED on after lytic lesion was noted on XR and was found to have concern for metastatic disease with multiple sites of involvement who is admitted for palliative radiation and then home with hospice. - Patient Problems (1) Metastatic disease Current Visit: Yes Status: Acute Code(s): C79.9 - SECONDARY MALIGNANT NEOPLASM OF UNSPECIFIED SITE SNOMED Code(s): 268247469 Comment: Biopsy confirmed diffusely metastatic nonsmall cell lung cancer. Appreciate oncology consult and recommendations. Plan for palliative radiation and hospice as patient does not want aggressive interventions. Radiation to start Friday and continue for 5 day course. Continue MS contin with oxycodone and morphine IV for breakthrough pain. Flexeril and valium available prn as well. Pain moderately well controlled with significant sedation. (2) Neuropathic pain Current Visit: Yes Status: Acute Comment: Continue gabapentin and Morphine. (3) HTN (hypertension) Current Visit: Yes Status: Chronic Code(s): I10 - ESSENTIAL (PRIMARY) HYPERTENSION SNOMED Code(s): 85607787 Comment: Normotensive Continue home diltiazem (4) Hypercholesteremia Current Visit: Yes Status: Chronic Code(s): E78.00 - PURE HYPERCHOLESTEROLEMIA, UNSPECIFIED SNOMED Code(s): 80079457 Comment: Continue statin. (5) Macular degeneration Current Visit: Yes Status: Chronic Code(s): H35.30 - UNSPECIFIED MACULAR DEGENERATION SNOMED Code(s): 157736601 Comment: Continue preservision vitamin. (6) Type 2 diabetes mellitus Current Visit: Yes Status: Chronic Comment: Reports borderline diabetes, diet controlled HgbA1c 6.3 No additional intervention warranted. (7) DVT prophylaxis Current Visit: Yes Status: Acute Code(s): YGB0493 - SNOMED Code(s): 267528624 Comment: SCDs as tolerated. Status and Disposition: Inpatient admission. Plan for home with hospice after radiation is completed.
[2017-06-07] MEDS: Diltiazem CD CAP* 180 MG PO SCH (14:14)
[2017-06-07] MEDS: oxyCODONE TAB* 5 MG TAB PO PRN (14:14)
[2017-06-07] MEDS: Docusate CAP* 100 MG PO SCH (21:58)
[2017-06-07] MEDS: Cyclobenzaprine TAB* 10 MG PO PRN (22:01)
[2017-06-07] MEDS: Lidocaine Patch REMOVE* 1 NOTE MISC SCH (22:03)
[2017-06-08 06:17] LABS: ABS Basophils 0 10^3/ul (0-0.2); ABS Eosinophils 0.2 10^3/ul (0-0.6); ABS Lymphocytes 0.9 10^3/ul (1.0-4.8); ABS Monocytes 1.1 10^3/ul (0-0.8); ABS Neutrophils 4.9 10^3/ul (1.5-7.7); ABS Nucleated RBC 0 10^3/ul; Eosinophil % 2.8 % (0-6); Hematocrit 28 % (35-47); Hemoglobin 9.4 g/dl (12.0-16.0); Lymphocyte % 12.1 % (25-47); Mean Corpuscular HGB Conc 33 g/dl (31-36); Mean Corpuscular Hemoglobin 29 pg (27-31); Mean Corpuscular Volume 88 fL (80-97); Nucleated Red Blood Cells % 0; Platelet Count 469 10^3/ul (150-450); Red Blood Count 3.21 10^6/ul (4.0-5.4); Red Cell Distribution Width 14 % (10.5-15); White Blood Count 7.1 10^3/ul (3.5-10.8)
[2017-06-08 06:41] LABS: EGFR Non-African American 97.8 (>60)
[2017-06-08] MEDS: Lidocaine PATCH 5%* 1 PATCH TRANSDERM SCH (08:15)
[2017-06-08] MEDS: Gabapentin CAP(*) 300 MG PO SCH ×3 (08:16→20:39)
[2017-06-08] MEDS: Docusate CAP* 100 MG PO SCH ×2 (08:16→20:40)
[2017-06-08] MEDS: Multivitamins/Minerals TAB PO SCH (08:16)
[2017-06-08] MEDS: Morphine TAB Extended Release (*) 15 MG TAB.ER PO SCH ×2 (08:16→23:40)
[2017-06-08] MEDS: oxyCODONE TAB* 5 MG TAB PO PRN ×2 (10:33→20:33)
[2017-06-08] MEDS: Ibuprofen TAB* 600 MG PO PRN (10:33)
--- NOTE | 2017-06-08 12:08 | PN ---
Subjective Date of Service: 06/08/17 Interval History: Patient examined after repositioning in bed. Patient in 9/10 pain and in a moderate amount of visible distress. Patient had gotten pain medication a short while beforehand and had no effects from them yet. Patient denies other complaints including CP, SOB, N/V, abdominal pain, diarrhea, F/C, constipation, or other pain. Patient somewhat disoriented and asking questions about prognosis which she then remembered had already been answered. Family History: Unchanged from Admission Social History: Unchanged from Admission Past Medical History: Unchanged from Admission Objective Active Medications: Cyclobenzaprine HCl (Flexeril Tab*) 10 mg PO TID PRN PRN Reason: SPASMS - MUSCLE Last Admin: 06/07/17 22:01 Dose: 10 mg Diazepam (Valium Tab(*)) 2.5 mg PO Q8H PRN PRN Reason: ANXIETY Last Admin: 06/04/17 10:52 Dose: 2.5 mg Diltiazem HCl (Cardizem Cd Cap*) 180 mg PO 1500 [facility] Last Admin: 06/07/17 14:14 Dose: 180 mg Docusate Sodium (Colace Cap*) 100 mg PO BID [facility] Last Admin: 06/08/17 08:16 Dose: 100 mg Gabapentin (Neurontin Cap(*)) 300 mg PO BID@0900,1500 [facility] Last Admin: 06/08/17 08:16 Dose: 300 mg Gabapentin (Neurontin Cap(*)) 600 mg PO BEDTIME [facility] Last Admin: 06/07/17 22:01 Dose: 600 mg Ibuprofen (Motrin Tab*) 600 mg PO Q8H PRN PRN Reason: PAIN Last Admin: 06/08/17 10:33 Dose: 600 mg Lidocaine (Lidoderm 5% Patch*) 1 patch TRANSDERM DAILY [facility] Last Admin: 06/08/17 08:15 Dose: 1 patch Morphine Sulfate (Ms Contin(*)) 15 mg PO Q12H [facility] Last Admin: 06/08/17 08:16 Dose: 15 mg Morphine Sulfate (Morphine Inj (Syringe)*) 4 mg IV Q4H PRN PRN Reason: PAIN - BREAKTHROUGH Last Admin: 06/07/17 19:00 Dose: 4 mg Multi-Ingredient Mouthwash/Gargle (Biotene Dry Mouth Oral Rinse(Nf)) 15 ml MT . DIRECTED [facility] Multivitamins/Minerals (Theragran/Minerals Tab*) 1 tab PO DAILY [facility] Last Admin: 06/08/17 08:16 Dose: 1 tab Ondansetron HCl (Zofran Inj*) 4 mg IV Q6H PRN PRN Reason: NAUSEA/VOMITING Oxycodone HCl (Roxycodone Tab*) 10 mg PO Q6H PRN PRN Reason: PAIN Last Admin: 06/08/17 10:33 Dose: 10 mg Pharmacy Profile Note (Lidocaine Patch Remove*) 1 note N/A 2100 [facility] Last Admin: 06/07/17 22:03 Dose: 1 note Polyethylene Glycol/Electrolytes (Miralax*) 17 gm PO DAILY PRN PRN Reason: CONSTIPATION Senna (Senokot Tab*) 1 tab PO BID PRN PRN Reason: CONSTIPATION Vital Signs - 8 hr 06/08/17 06/08/17 06/08/17 07:19 08:00 08:16 Temperature 98.4 F Pulse Rate 81 Respiratory 16 18 16 Rate Blood Pressure 116/39 (mmHg) O2 Sat by Pulse 98 98 Oximetry 06/08/17 06/08/17 10:33 10:57 Temperature Pulse Rate Respiratory 18 18 Rate Blood Pressure (mmHg) O2 Sat by Pulse Oximetry Oxygen Devices in Use Now: Nasal Cannula Appearance: Patient is a 66yo female who appears stated age and is sitting in the bed in mild distress from pain. Eyes: No Scleral Icterus, PERRLA Ears/Nose/Mouth/Throat: NL Teeth, Lips, Gums, Clear Oropharnyx, Mucous Membranes Moist Neck: NL Appearance and Movements; NL JVP, Trachea Midline Respiratory: Symmetrical Chest Expansion and Respiratory Effort, Clear to Auscultation Cardiovascular: NL Sounds; No Murmurs; No JVD, RRR, No Edema Abdominal: NL Sounds; No Tenderness; No Distention, No Hepatosplenomegaly Lymphatic: No Cervical Adenopathy Extremities: No Edema, No Clubbing, Cyanosis, - - Pain with movement in B/L LE. Skin: No Rash or Ulcers, No Nodules or Sclerosis Neurological: Alert and Oriented x 3, NL Sensation, NL Muscle Strength and Tone , - - CN II-XII intact Result Diagrams: 06/08/17 05:43 06/08/17 05:43 Microbiology and Other Data: . Assess/Plan/Problems-Billing Assessment: Ms. Supek is a 66 yo female with a PMH significant for HTN, hypercholesterolemia , borderline diabetes, and macular degeneration who was referred to the ED on after lytic lesion was noted on XR and was found to have concern for metastatic disease with multiple sites of involvement who is admitted for palliative radiation and then home with hospice. - Patient Problems (1) Metastatic disease Current Visit: Yes Status: Acute Code(s): C79.9 - SECONDARY MALIGNANT NEOPLASM OF UNSPECIFIED SITE SNOMED Code(s): 335709277 Comment: Biopsy confirmed diffusely metastatic nonsmall cell lung cancer. Appreciate oncology consult and recommendations. Plan for palliative radiation and hospice as patient does not want aggressive interventions. Radiation to start Friday and continue for 5 day course. Continue MS contin with oxycodone and morphine IV for breakthrough pain. Flexeril and valium available prn as well. Pain moderately well controlled with significant sedation. (2) Neuropathic pain Current Visit: Yes Status: Acute Comment: Continue gabapentin and Morphine. (3) HTN (hypertension) Current Visit: Yes Status: Chronic Code(s): I10 - ESSENTIAL (PRIMARY) HYPERTENSION SNOMED Code(s): 87771657 Comment: Normotensive Continue home diltiazem (4) Hypercholesteremia Current Visit: Yes Status: Chronic Code(s): E78.00 - PURE HYPERCHOLESTEROLEMIA, UNSPECIFIED SNOMED Code(s): 26400648 Comment: Continue statin. (5) Macular degeneration Current Visit: Yes Status: Chronic Code(s): H35.30 - UNSPECIFIED MACULAR DEGENERATION SNOMED Code(s): 147194071 Comment: Continue preservision vitamin. (6) Type 2 diabetes mellitus Current Visit: Yes Status: Chronic Comment: Reports borderline diabetes, diet controlled HgbA1c 6.3 No additional intervention warranted. (7) DVT prophylaxis Current Visit: Yes Status: Acute Code(s): SEQ4883 - SNOMED Code(s): 559210634 Comment: SCDs as tolerated. Status and Disposition: Inpatient admission. Plan for home with hospice after radiation is completed.
[2017-06-08] MEDS ORDERED: SALIVA SUBSTITUTE MT PRN (13:00)
[2017-06-08] MEDS: Diltiazem CD CAP* 180 MG PO SCH (15:34)
[2017-06-08] MEDS: Lidocaine Patch REMOVE* 1 NOTE MISC SCH (20:41)
[2017-06-09] MEDS: oxyCODONE TAB* 5 MG TAB PO PRN ×3 (04:42→19:46)
[2017-06-09] MEDS: Docusate CAP* 100 MG PO SCH ×2 (08:06→19:44)
[2017-06-09] MEDS: Multivitamins/Minerals TAB PO SCH (08:06)
[2017-06-09] MEDS: Lidocaine PATCH 5%* 1 PATCH TRANSDERM SCH (08:06)
[2017-06-09] MEDS: Morphine INJ* 2 MG/ML 1 ML CARPUJECT IV PRN ×2 (08:07→11:11)
[2017-06-09] MEDS: Morphine TAB Extended Release (*) 15 MG TAB.ER PO SCH (09:54)
[2017-06-09] MEDS: Gabapentin CAP(*) 300 MG PO SCH ×3 (09:55→19:45)
[2017-06-09] MEDS: Cyclobenzaprine TAB* 10 MG PO PRN (11:47)
--- NOTE | 2017-06-09 15:27 | PN ---
Subjective Date of Service: 06/09/17 Interval History: Pain was not bad last night so refused the morphine ER. but then woke up ~3am in pain, then lost IV access. Pain bad in morning and when using bed pain. some better relief once IV re-established. Family History: Unchanged from Admission Social History: Unchanged from Admission Past Medical History: Unchanged from Admission Objective Active Medications: Cyclobenzaprine HCl (Flexeril Tab*) 10 mg PO TID PRN PRN Reason: SPASMS - MUSCLE Last Admin: 06/09/17 11:47 Dose: 10 mg Diazepam (Valium Tab(*)) 2.5 mg PO Q8H PRN PRN Reason: ANXIETY Last Admin: 06/04/17 10:52 Dose: 2.5 mg Diltiazem HCl (Cardizem Cd Cap*) 180 mg PO 1500 [facility] Last Admin: 06/08/17 15:34 Dose: Not Given Docusate Sodium (Colace Cap*) 100 mg PO BID [facility] Last Admin: 06/09/17 08:06 Dose: 100 mg Gabapentin (Neurontin Cap(*)) 300 mg PO BID@0900,1500 [facility] Last Admin: 06/09/17 09:55 Dose: 300 mg Gabapentin (Neurontin Cap(*)) 600 mg PO BEDTIME [facility] Last Admin: 06/08/17 20:39 Dose: 600 mg Ibuprofen (Motrin Tab*) 600 mg PO Q8H PRN PRN Reason: PAIN Last Admin: 06/08/17 10:33 Dose: 600 mg Lidocaine (Lidoderm 5% Patch*) 1 patch TRANSDERM DAILY [facility] Last Admin: 06/09/17 08:06 Dose: 1 patch Morphine Sulfate (Ms Contin(*)) 15 mg PO Q12H [facility] Last Admin: 06/09/17 09:54 Dose: 15 mg Morphine Sulfate (Morphine Inj (Syringe)*) 4 mg IV Q4H PRN PRN Reason: PAIN - BREAKTHROUGH Last Admin: 06/09/17 11:11 Dose: 4 mg Multivitamins/Minerals (Theragran/Minerals Tab*) 1 tab PO DAILY [facility] Last Admin: 06/09/17 08:06 Dose: 1 tab Ondansetron HCl (Zofran Inj*) 4 mg IV Q6H PRN PRN Reason: NAUSEA/VOMITING Oxycodone HCl (Roxycodone Tab*) 10 mg PO Q6H PRN PRN Reason: PAIN Last Admin: 06/09/17 11:46 Dose: 10 mg Pharmacy Profile Note (Lidocaine Patch Remove*) 1 note N/A [facility] Last Admin: 06/08/17 20:41 Dose: 1 note Polyethylene Glycol/Electrolytes (Miralax*) 17 gm PO DAILY PRN PRN Reason: CONSTIPATION Saliva Substitute (Biotene Moisturizing Mouth (Nf)) 1 spray MT FIVE TIMES DAILY PRN PRN Reason: DRY MOUTH Senna (Senokot Tab*) 1 tab PO BID PRN PRN Reason: CONSTIPATION Vital Signs - 8 hr 06/09/17 06/09/17 06/09/17 07:50 08:00 09:54 Temperature 97.8 F Pulse Rate 95 Respiratory 18 18 14 Rate Blood Pressure 109/58 (mmHg) O2 Sat by Pulse 90 94 Oximetry 06/09/17 06/09/17 06/09/17 09:55 10:31 11:11 Temperature Pulse Rate 104 Respiratory 14 20 Rate Blood Pressure (mmHg) O2 Sat by Pulse 93 Oximetry 06/09/17 06/09/17 06/09/17 11:46 11:47 15:14 Temperature 98.2 F Pulse Rate 88 Respiratory 18 18 14 Rate Blood Pressure 106/47 (mmHg) O2 Sat by Pulse 94 Oximetry Oxygen Devices in Use Now: Nasal Cannula Appearance: NAD, occasionally closing eyes. Eyes: No Scleral Icterus, PERRLA Ears/Nose/Mouth/Throat: NL Teeth, Lips, Gums, Mucous Membranes Moist Neck: NL Appearance and Movements; NL JVP, Trachea Midline Respiratory: Symmetrical Chest Expansion and Respiratory Effort, Clear to Auscultation Cardiovascular: NL Sounds; No Murmurs; No JVD, RRR, No Edema Abdominal: NL Sounds; No Tenderness; No Distention, No Hepatosplenomegaly Extremities: No Edema Skin: No Rash or Ulcers, No Nodules or Sclerosis Neurological: Alert and Oriented x 3, NL Sensation Nutrition: Taking PO's Result Diagrams: 06/08/17 05:43 06/08/17 05:43 Microbiology and Other Data: . Microbiology 06/05/17 03:39 Blood Venous Aerobic Blood Culture - Preliminary No Growth Day 4 06/05/17 03:39 Blood Venous Anaerobic Blood Culture - Preliminary No Growth Day 4 06/05/17 03:45 Blood Venous Aerobic Blood Culture - Preliminary No Growth Day 4 06/05/17 03:45 Blood Venous Anaerobic Blood Culture - Preliminary No Growth Day 4 06/06/17 00:30 Urine Urine Culture - Final No Growth (<1,000 CFU/mL) Assess/Plan/Problems-Billing Assessment: 66 yo female with a PMH significant for HTN, hypercholesterolemia, borderline diabetes, and macular degeneration who was referred to the ED on 06/03/17 after rip hip lytic lesion was noted on XR and was found to metastatic disease lung cancer with multiple sites of involvement who is planned 5 days palliative radiation to hip and then home with hospice. - Patient Problems (1) Metastatic disease Current Visit: Yes Status: Acute Code(s): C79.9 - SECONDARY MALIGNANT NEOPLASM OF UNSPECIFIED SITE SNOMED Code(s): 000603368 Comment: Biopsy confirmed diffusely metastatic nonsmall cell lung cancer. Appreciate oncology consult and recommendations. Plan for palliative radiation and hospice as patient does not want aggressive interventions. Radiation started today Friday and continue for 5 day course. Continue MS contin with oxycodone and morphine IV for breakthrough pain. Flexeril and valium available prn as well. (2) Neuropathic pain Current Visit: Yes Status: Acute Comment: Continue gabapentin and Morphine. (3) HTN (hypertension) Current Visit: Yes Status: Chronic Code(s): I10 - ESSENTIAL (PRIMARY) HYPERTENSION SNOMED Code(s): 96537933 Comment: stop home diltiazem for soft blood pressures (4) Hypercholesteremia Current Visit: Yes Status: Chronic Code(s): E78.00 - PURE HYPERCHOLESTEROLEMIA, UNSPECIFIED SNOMED Code(s): 75106294 Comment: Continue statin. (5) Macular degeneration Current Visit: Yes Status: Chronic Code(s): H35.30 - UNSPECIFIED MACULAR DEGENERATION SNOMED Code(s): 600347057 Comment: Continue preservision vitamin. (6) Type 2 diabetes mellitus Current Visit: Yes Status: Chronic Comment: Reports borderline diabetes, diet controlled HgbA1c 6.3 No additional intervention warranted. (7) DVT prophylaxis Current Visit: Yes Status: Acute Code(s): KDY7936 - SNOMED Code(s): 011762912 Comment: SCDs as tolerated. (8) Hypoxia Current Visit: Yes Status: Acute Code(s): R09.02 - HYPOXEMIA SNOMED Code(s ): 315404025 Comment: on 2L. none at home. CXR with some vascular congestion. consider small doses of lasix but will hold off as her pain is much worse using the commode. Status and Disposition: Inpatient admission. Plan for home with hospice after radiation is completed.
[2017-06-09] MEDS: Diltiazem CD CAP* 180 MG PO SCH (15:34)
[2017-06-09] MEDS: Lidocaine Patch REMOVE* 1 NOTE MISC SCH (22:30)
[2017-06-10] MEDS: Morphine TAB Extended Release (*) 15 MG TAB.ER PO SCH ×3 (00:03→20:41)
[2017-06-10] MEDS: Ibuprofen TAB* 600 MG PO PRN ×3 (00:03→20:42)
[2017-06-10] MEDS: oxyCODONE TAB* 5 MG TAB PO PRN ×2 (07:02→14:58)
[2017-06-10] MEDS: Gabapentin CAP(*) 300 MG PO SCH ×3 (09:19→20:40)
[2017-06-10] MEDS: Multivitamins/Minerals TAB PO SCH (09:21)
[2017-06-10] MEDS: Docusate CAP* 100 MG PO SCH ×2 (09:21→20:43)
[2017-06-10] MEDS: Lidocaine PATCH 5%* 1 PATCH TRANSDERM SCH (09:21)
[2017-06-10] MEDS: Cyclobenzaprine TAB* 10 MG PO PRN ×2 (09:22→20:43)
[2017-06-10] MEDS: Morphine INJ* 2 MG/ML 1 ML CARPUJECT IV PRN ×2 (09:28→17:30)
[2017-06-10] MEDS: Diazepam TAB(*) 5 MG PO PRN (11:07)
[2017-06-10] MEDS ORDERED: Morphine INJ* 2 MG/ML 1 ML CARPUJECT IV ONE (11:10)
--- NOTE | 2017-06-10 19:06 | PN ---
Subjective Date of Service: 06/10/17 Interval History: Pt is feeling ok currently. She is questioning if she should take pain medication prior to moving or after-we had a lengthy discussion about using medication prior to try to aide her ability to move. She states she had 2 BMs yesterday. No SOB. Family History: Unchanged from Admission Social History: Unchanged from Admission Past Medical History: Unchanged from Admission Objective Active Medications: Cyclobenzaprine HCl (Flexeril Tab*) 10 mg PO TID PRN PRN Reason: SPASMS - MUSCLE Last Admin: 06/10/17 09:22 Dose: 10 mg Diazepam (Valium Tab(*)) 2.5 mg PO Q8H PRN PRN Reason: ANXIETY Last Admin: 06/10/17 11:07 Dose: 2.5 mg Docusate Sodium (Colace Cap*) 100 mg PO BID [facility] Last Admin: 06/10/17 09:21 Dose: 100 mg Gabapentin (Neurontin Cap(*)) 300 mg PO BID@0900,1500 [facility] Last Admin: 06/10/17 14:57 Dose: 300 mg Gabapentin (Neurontin Cap(*)) 600 mg PO BEDTIME [facility] Last Admin: 06/09/17 19:45 Dose: 600 mg Ibuprofen (Motrin Tab*) 600 mg PO Q8H PRN PRN Reason: PAIN Last Admin: 06/10/17 11:07 Dose: 600 mg Lidocaine (Lidoderm 5% Patch*) 1 patch TRANSDERM DAILY [facility] Last Admin: 06/10/17 09:21 Dose: 1 patch Morphine Sulfate (Ms Contin(*)) 15 mg PO Q12H [facility] Last Admin: 06/10/17 10:10 Dose: 15 mg Morphine Sulfate (Morphine Inj (Syringe)*) 2 mg IV Q2H PRN PRN Reason: PAIN - BREAKTHROUGH Last Admin: 06/10/17 17:30 Dose: 2 mg Morphine Sulfate (Morphine Oral Concentrate*) 5 mg SL Q2H PRN PRN Reason: PAIN Multivitamins/Minerals (Theragran/Minerals Tab*) 1 tab PO DAILY [facility] Last Admin: 06/10/17 09:21 Dose: 1 tab Ondansetron HCl (Zofran Inj*) 4 mg IV Q6H PRN PRN Reason: NAUSEA/VOMITING Oxycodone HCl (Roxycodone Tab*) 10 mg PO Q6H PRN PRN Reason: PAIN Last Admin: 06/10/17 14:58 Dose: 10 mg Pharmacy Profile Note (Lidocaine Patch Remove*) 1 note N/A [facility] Last Admin: 06/09/17 22:30 Dose: 1 note Polyethylene Glycol/Electrolytes (Miralax*) 17 gm PO DAILY PRN PRN Reason: CONSTIPATION Saliva Substitute (Biotene Moisturizing Mouth (Nf)) 1 spray MT FIVE TIMES DAILY PRN PRN Reason: DRY MOUTH Last Admin: 06/10/17 12:28 Dose: 1 spray Senna (Senokot Tab*) 1 tab PO BID PRN PRN Reason: CONSTIPATION Vital Signs - 8 hr 06/10/17 06/10/17 06/10/17 11:07 11:17 12:31 Temperature 97.2 F Pulse Rate 81 Respiratory 18 18 16 Rate Blood Pressure 104/49 (mmHg) O2 Sat by Pulse 93 Oximetry 06/10/17 06/10/17 06/10/17 13:38 14:57 14:58 Temperature Pulse Rate Respiratory 16 16 16 Rate Blood Pressure (mmHg) O2 Sat by Pulse Oximetry 06/10/17 17:30 Temperature Pulse Rate Respiratory 16 Rate Blood Pressure (mmHg) O2 Sat by Pulse Oximetry Oxygen Devices in Use Now: Nasal Cannula Appearance: Middle aged female sitting up in bed, NAD Eyes: No Scleral Icterus Ears/Nose/Mouth/Throat: Mucous Membranes Moist Respiratory: Symmetrical Chest Expansion and Respiratory Effort, Clear to Auscultation Cardiovascular: NL Sounds; No Murmurs; No JVD, RRR, No Edema Abdominal: NL Sounds; No Tenderness; No Distention Extremities: No Clubbing, Cyanosis Skin: No Nodules or Sclerosis Neurological: Alert and Oriented x 3 Result Diagrams: 06/08/17 05:43 06/08/17 05:43 Microbiology and Other Data: . Microbiology 06/05/17 03:39 Blood Venous Aerobic Blood Culture - Preliminary No Growth Day 4 06/05/17 03:39 Blood Venous Anaerobic Blood Culture - Preliminary No Growth Day 4 06/05/17 03:45 Blood Venous Aerobic Blood Culture - Preliminary No Growth Day 4 06/05/17 03:45 Blood Venous Anaerobic Blood Culture - Preliminary No Growth Day 4 06/06/17 00:30 Urine Urine Culture - Final No Growth (<1,000 CFU/mL) Assess/Plan/Problems-Billing 66 yo female with a PMH significant for HTN, hypercholesterolemia, borderline diabetes, and macular degeneration who was referred to the ED on 06/03/17 after left hip lytic lesion was noted on XR and was found to metastatic disease lung cancer with multiple sites of involvement who is planned 5 days palliative radiation to hip and then home with hospice. - Patient Problems (1) Metastatic disease Current Visit: Yes Status: Acute Code(s): C79.9 - SECONDARY MALIGNANT NEOPLASM OF UNSPECIFIED SITE SNOMED Code(s): 313451602 Comment: Biopsy confirmed diffusely metastatic nonsmall cell lung cancer. Continue palliative radiation to the left hip. Plan for home with hospice Friday. Increased morphine to 4mg IV prior to XRT for improved pain control with moving. Continue oral MS contin and oxycodone. Add roxanol to try to get good home option for pain control. (2) HTN (hypertension) Current Visit: Yes Status: Chronic Code(s): I10 - ESSENTIAL (PRIMARY) HYPERTENSION SNOMED Code(s): 15559112 Comment: BP soft off all home medications. Continue to follow. (3) Type 2 diabetes mellitus Current Visit: Yes Status: Chronic Comment: Borderline DM. No need for further evaluation or treatment. (4) Hypercholesteremia Current Visit: Yes Status: Chronic Code(s): E78.00 - PURE HYPERCHOLESTEROLEMIA, UNSPECIFIED SNOMED Code(s): 56492945 Comment: Statin d/lashae. (5) DVT prophylaxis Current Visit: Yes Status: Acute Code(s): GDZ9266 - SNOMED Code(s): 906723955 Comment: SCDs as tolerated. Status and Disposition: Inpatient admission. Plan for home with hospice after radiation is completed.
[2017-06-10] MEDS: Senna TAB PO PRN (20:43)
[2017-06-10] MEDS: Morphine ORAL CONCENTRATE* 5 MG/0.25 ML ORAL.SYRIN SL PRN (20:44)
[2017-06-11] MEDS: Lidocaine Patch REMOVE* 1 NOTE MISC SCH ×2 (01:28→20:17)
[2017-06-11] MEDS: Morphine ORAL CONCENTRATE* 5 MG/0.25 ML ORAL.SYRIN SL PRN ×5 (03:01→18:49)
[2017-06-11] MEDS: oxyCODONE TAB* 5 MG TAB PO PRN ×2 (03:01→09:50)
[2017-06-11] MEDS: Multivitamins/Minerals TAB PO SCH (09:50)
[2017-06-11] MEDS: Lidocaine PATCH 5%* 1 PATCH TRANSDERM SCH (09:51)
[2017-06-11] MEDS: Docusate CAP* 100 MG PO SCH ×2 (09:51→20:11)
[2017-06-11] MEDS: Morphine TAB Extended Release (*) 15 MG TAB.ER PO SCH ×2 (09:51→20:13)
[2017-06-11] MEDS: Gabapentin CAP(*) 300 MG PO SCH ×3 (09:54→20:11)
[2017-06-11] MEDS: Cyclobenzaprine TAB* 10 MG PO PRN ×2 (09:58→20:12)
--- NOTE | 2017-06-11 10:08 | PN ---
Subjective Date of Service: 06/11/17 Interval History: Pt is feeling ok. She has been having cramps in her L calf. Additionally she thinks the oral morphine has helped but she thinks a higher dose may be more helpful. Family History: Unchanged from Admission Social History: Unchanged from Admission Past Medical History: Unchanged from Admission Objective Active Medications: Cyclobenzaprine HCl (Flexeril Tab*) 10 mg PO TID PRN PRN Reason: SPASMS - MUSCLE Last Admin: 06/11/17 09:58 Dose: 10 mg Diazepam (Valium Tab(*)) 2.5 mg PO Q8H PRN PRN Reason: ANXIETY Last Admin: 06/10/17 11:07 Dose: 2.5 mg Docusate Sodium (Colace Cap*) 100 mg PO BID [facility] Last Admin: 06/11/17 09:51 Dose: 100 mg Gabapentin (Neurontin Cap(*)) 300 mg PO BID@0900,1500 [facility] Last Admin: 06/11/17 09:54 Dose: 300 mg Gabapentin (Neurontin Cap(*)) 600 mg PO BEDTIME [facility] Last Admin: 06/10/17 20:40 Dose: 600 mg Ibuprofen (Motrin Tab*) 600 mg PO Q8H PRN PRN Reason: PAIN Last Admin: 06/10/17 20:42 Dose: 600 mg Lidocaine (Lidoderm 5% Patch*) 1 patch TRANSDERM DAILY [facility] Last Admin: 06/11/17 09:51 Dose: 1 patch Morphine Sulfate (Ms Contin(*)) 15 mg PO Q12H [facility] Last Admin: 06/11/17 09:51 Dose: 15 mg Morphine Sulfate (Morphine Inj (Syringe)*) 2 mg IV Q2H PRN PRN Reason: PAIN - BREAKTHROUGH Last Admin: 06/10/17 17:30 Dose: 2 mg Morphine Sulfate (Morphine Oral Concentrate*) 5 mg SL Q2H PRN PRN Reason: PAIN Last Admin: 06/11/17 09:48 Dose: 5 mg Morphine Sulfate (Morphine Inj (Syringe)*) 4 mg IV DAILY PRN PRN Reason: give prior to XRT Multivitamins/Minerals (Theragran/Minerals Tab*) 1 tab PO DAILY [facility] Last Admin: 06/11/17 09:50 Dose: 1 tab Ondansetron HCl (Zofran Inj*) 4 mg IV Q6H PRN PRN Reason: NAUSEA/VOMITING Oxycodone HCl (Roxycodone Tab*) 10 mg PO Q6H PRN PRN Reason: PAIN Last Admin: 06/11/17 09:50 Dose: 10 mg Pharmacy Profile Note (Lidocaine Patch Remove*) 1 note N/A 2100 [facility] Last Admin: 06/11/17 01:28 Dose: 1 note Polyethylene Glycol/Electrolytes (Miralax*) 17 gm PO DAILY PRN PRN Reason: CONSTIPATION Saliva Substitute (Biotene Moisturizing Mouth (Nf)) 1 spray MT FIVE TIMES DAILY PRN PRN Reason: DRY MOUTH Last Admin: 06/10/17 12:28 Dose: 1 spray Senna (Senokot Tab*) 1 tab PO BID PRN PRN Reason: CONSTIPATION Last Admin: 06/10/17 20:43 Dose: 1 tab Vital Signs - 8 hr 06/11/17 06/11/17 06/11/17 02:49 03:01 05:36 Temperature 97.4 F Pulse Rate 80 Respiratory 16 16 16 Rate Blood Pressure 109/46 (mmHg) O2 Sat by Pulse 95 Oximetry 06/11/17 06/11/17 06/11/17 07:35 07:55 09:00 Temperature Pulse Rate 74 Respiratory 12 12 20 Rate Blood Pressure 98/43 (mmHg) O2 Sat by Pulse 90 95 Oximetry 06/11/17 06/11/17 06/11/17 09:48 09:50 09:51 Temperature Pulse Rate Respiratory 14 14 14 Rate Blood Pressure (mmHg) O2 Sat by Pulse Oximetry 06/11/17 06/11/17 09:54 09:58 Temperature Pulse Rate Respiratory 14 14 Rate Blood Pressure (mmHg) O2 Sat by Pulse Oximetry Oxygen Devices in Use Now: Nasal Cannula Appearance: Middle aged female sitting up in bed, NAD Eyes: No Scleral Icterus Ears/Nose/Mouth/Throat: Mucous Membranes Moist Respiratory: Symmetrical Chest Expansion and Respiratory Effort, Clear to Auscultation - anteriorly Cardiovascular: NL Sounds; No Murmurs; No JVD, RRR, No Edema Abdominal: NL Sounds; No Tenderness; No Distention Extremities: No Clubbing, Cyanosis Skin: No Nodules or Sclerosis Neurological: Alert and Oriented x 3 Result Diagrams: 06/08/17 05:43 06/08/17 05:43 Microbiology and Other Data: . Microbiology 06/05/17 03:39 Blood Venous Aerobic Blood Culture - Preliminary No Growth Day 4 06/05/17 03:39 Blood Venous Anaerobic Blood Culture - Preliminary No Growth Day 4 06/05/17 03:45 Blood Venous Aerobic Blood Culture - Preliminary No Growth Day 4 06/05/17 03:45 Blood Venous Anaerobic Blood Culture - Preliminary No Growth Day 4 06/06/17 00:30 Urine Urine Culture - Final No Growth (<1,000 CFU/mL) Assess/Plan/Problems-Billing 66 yo female with a PMH significant for HTN, hypercholesterolemia, borderline diabetes, and macular degeneration who was referred to the ED on 06/03/17 after left hip lytic lesion was noted on XR and was found to metastatic disease lung cancer with multiple sites of involvement who is planned 5 days palliative radiation to hip and then home with hospice. - Patient Problems (1) Metastatic disease Current Visit: Yes Status: Acute Code(s): C79.9 - SECONDARY MALIGNANT NEOPLASM OF UNSPECIFIED SITE SNOMED Code(s): 389376673 Comment: Biopsy confirmed diffusely metastatic nonsmall cell lung cancer. Continue palliative radiation to the left hip. Plan for home with hospice Friday. Continue oral MS contin, oxycodone and roxanol. Will adjust doses as needed. (2) HTN (hypertension) Current Visit: Yes Status: Chronic Code(s): I10 - ESSENTIAL (PRIMARY) HYPERTENSION SNOMED Code(s): 01125857 Comment: BP soft off all home medications. Continue to follow. (3) Type 2 diabetes mellitus Current Visit: Yes Status: Chronic Comment: Borderline DM. No need for further evaluation or treatment. (4) Hypercholesteremia Current Visit: Yes Status: Chronic Code(s): E78.00 - PURE HYPERCHOLESTEROLEMIA, UNSPECIFIED SNOMED Code(s): 03962357 Comment: Statin d/lashae. (5) DVT prophylaxis Current Visit: Yes Status: Acute Code(s): RJH9227 - SNOMED Code(s): 479766411 Comment: SCDs as tolerated. (6) DNR (do not resuscitate) Current Visit: Yes Status: Acute Status and Disposition: d/c home with hospice 06/13/17
[2017-06-11] MEDS: Morphine INJ* 4 MG/ML 1 ML SYRINGE (NEW SYRINGE VERSION) IV PRN (11:01)
[2017-06-11] MEDS: Senna TAB PO PRN (20:12)
[2017-06-11] MEDS: Ibuprofen TAB* 600 MG PO PRN (20:27)
--- NOTE | 2017-06-11 21:36 | RAD ---
INDICATION: Fever COMPARISON: Most recent comparison chest x-ray dated June 05, 2017. TECHNIQUE: Single AP portable view of the chest was obtained. FINDINGS: Image quality is compromised due to the relative inferiority of a portable chest x-ray. There is interval appearance of density obscuring the right lung base extending laterally. The pulmonary vasculature again looks mildly engorged and indistinct. A pleural-based density along the lateral margin of the left hemithorax is unchanged from the previous chest x-ray. Visualized bones are normal for the patient's age. IMPRESSION: Interval appearance of density at the right lung base could represent pleural effusion and/or atelectasis.
[2017-06-11 21:39] LABS: Urine Appearance Cloudy; Urine Blood 2+ (Negative); Urine Color Yellow; Urine Ketones Negative (Negative); Urine Protein 1+(30 mg/dL) (Negative); Urine Specific Gravity 1.013 (1.010-1.030); Urine Urobilinogen Negative (Negative)
[2017-06-11] MEDS ORDERED: Levofloxacin 500 MG IVPREMIX(* 500 MG/100 ML BAG IVPB SCH (23:45)
[2017-06-12] MEDS: Morphine ORAL CONCENTRATE* 5 MG/0.25 ML ORAL.SYRIN SL PRN ×4 (08:21→17:05)
[2017-06-12] MEDS: Docusate CAP* 100 MG PO SCH ×2 (10:32→21:01)
[2017-06-12] MEDS: Morphine INJ* 4 MG/ML 1 ML SYRINGE (NEW SYRINGE VERSION) IV PRN (10:32)
[2017-06-12] MEDS: Multivitamins/Minerals TAB PO SCH (10:32)
[2017-06-12] MEDS: Morphine TAB Extended Release (*) 15 MG TAB.ER PO SCH ×3 (10:32→21:04)
--- NOTE | 2017-06-12 10:32 | PN ---
Progress Note - Progress Note Date of Service: 06/12/17 SOAP: Subjective: pain still poorly controlled 11/24 with any movement. gets anxious about going to RT because of pain on moving. having daily BMs Objective: Vital Signs Temp Pulse Resp BP Pulse Ox 97.3 F 73 16 102/50 94 06/12/17 02:53 06/12/17 07:32 06/12/17 08:21 06/12/17 07:32 06/12/17 08:00 perr eomi op dry CTA anteriorly s1 s2 nl soft nt +Bs no le edema A+O x 3 Assessment: 66 yo F w diffusely metastatic NSCLC getting palliative RT to hip with plan for discharge after to home hospice. She reiterated that she wants hospice and not chemotherapy, particularly given that she will be bedbound for the remainder of her life. Plan: -increase long acting MS Contin to 30 mg po bid -cont short acting -home with hospice when RT complete on my service
[2017-06-12] MEDS: Gabapentin CAP(*) 300 MG PO SCH ×3 (10:33→21:01)
[2017-06-12] MEDS: Lidocaine PATCH 5%* 1 PATCH TRANSDERM SCH (10:41)
[2017-06-12] MEDS: Diazepam TAB(*) 5 MG PO PRN (11:00)
[2017-06-12] MEDS: Cyclobenzaprine TAB* 10 MG PO PRN (12:56)
[2017-06-12] MEDS: oxyCODONE TAB* 5 MG TAB PO PRN (12:56)
--- NOTE | 2017-06-12 17:39 | PN ---
Subjective Date of Service: 06/12/17 Interval History: Pt states this morning was rough. She was in quite a bit of pain. Her pain currently is better controlled. She spiked a fever last night. She is worried about her being able to hand what is to come. Family History: Unchanged from Admission Social History: Unchanged from Admission Past Medical History: Unchanged from Admission Objective Active Medications: Cyclobenzaprine HCl (Flexeril Tab*) 10 mg PO TID PRN PRN Reason: SPASMS - MUSCLE Last Admin: 06/12/17 12:56 Dose: 10 mg Diazepam (Valium Tab(*)) 2.5 mg PO Q8H PRN PRN Reason: ANXIETY Last Admin: 06/12/17 11:00 Dose: 2.5 mg Docusate Sodium (Colace Cap*) 100 mg PO BID [facility] Last Admin: 06/12/17 10:32 Dose: 100 mg Gabapentin (Neurontin Cap(*)) 300 mg PO BID@0900,1500 [facility] Last Admin: 06/12/17 15:06 Dose: 300 mg Gabapentin (Neurontin Cap(*)) 600 mg PO BEDTIME [facility] Last Admin: 06/11/17 20:11 Dose: 600 mg Levofloxacin/Dextrose (Levaquin 500 Mg Ivpremix(*)) 500 mg in 100 mls @ 100 mls /hr IVPB Q24H [facility] Last Admin: 06/11/17 23:56 Dose: 100 mls/hr Ibuprofen (Motrin Tab*) 600 mg PO Q8H PRN PRN Reason: PAIN Last Admin: 06/11/17 20:27 Dose: 600 mg Lidocaine (Lidoderm 5% Patch*) 1 patch TRANSDERM DAILY [facility] Last Admin: 06/12/17 10:41 Dose: 1 patch Morphine Sulfate (Morphine Inj (Syringe)*) 2 mg IV Q2H PRN PRN Reason: PAIN - BREAKTHROUGH Last Admin: 06/10/17 17:30 Dose: 2 mg Morphine Sulfate (Morphine Oral Concentrate*) 5 mg SL Q2H PRN PRN Reason: PAIN Last Admin: 06/12/17 17:05 Dose: 5 mg Morphine Sulfate (Morphine Inj (Syringe)*) 4 mg IV DAILY PRN PRN Reason: give prior to XRT Last Admin: 06/12/17 10:32 Dose: 4 mg Morphine Sulfate (Ms Contin(*)) 30 mg PO Q12H [facility] Last Admin: 06/12/17 12:57 Dose: 15 mg Multivitamins/Minerals (Theragran/Minerals Tab*) 1 tab PO DAILY [facility] Last Admin: 06/12/17 10:32 Dose: 1 tab Ondansetron HCl (Zofran Inj*) 4 mg IV Q6H PRN PRN Reason: NAUSEA/VOMITING Oxycodone HCl (Roxycodone Tab*) 10 mg PO Q6H PRN PRN Reason: PAIN Last Admin: 06/12/17 12:56 Dose: 10 mg Pharmacy Profile Note (Lidocaine Patch Remove*) 1 note N/A 2100 [facility] Last Admin: 06/11/17 20:17 Dose: 1 note Polyethylene Glycol/Electrolytes (Miralax*) 17 gm PO DAILY PRN PRN Reason: CONSTIPATION Saliva Substitute (Biotene Moisturizing Mouth (Nf)) 1 spray MT FIVE TIMES DAILY PRN PRN Reason: DRY MOUTH Last Admin: 06/10/17 12:28 Dose: 1 spray Senna (Senokot Tab*) 1 tab PO BID PRN PRN Reason: CONSTIPATION Last Admin: 06/11/17 20:12 Dose: 1 tab Vital Signs - 8 hr 06/12/17 06/12/17 06/12/17 10:32 10:33 11:00 Temperature Pulse Rate Respiratory 16 16 15 Rate Blood Pressure (mmHg) O2 Sat by Pulse Oximetry 06/12/17 06/12/17 06/12/17 12:56 12:57 13:41 Temperature 97.9 F Pulse Rate 90 Respiratory 18 18 18 Rate Blood Pressure 116/64 (mmHg) O2 Sat by Pulse 93 Oximetry 06/12/17 06/12/17 06/12/17 15:06 15:08 16:00 Temperature Pulse Rate Respiratory 17 17 Rate Blood Pressure (mmHg) O2 Sat by Pulse 93 Oximetry 06/12/17 06/12/17 17:05 17:16 Temperature Pulse Rate Respiratory 18 14 Rate Blood Pressure (mmHg) O2 Sat by Pulse Oximetry Oxygen Devices in Use Now: Nasal Cannula Appearance: Middle aged female sitting up in bed, NAD Eyes: No Scleral Icterus Ears/Nose/Mouth/Throat: Mucous Membranes Moist Respiratory: Symmetrical Chest Expansion and Respiratory Effort, Clear to Auscultation Cardiovascular: NL Sounds; No Murmurs; No JVD, RRR, No Edema Abdominal: NL Sounds; No Tenderness; No Distention Extremities: No Clubbing, Cyanosis Skin: No Nodules or Sclerosis Neurological: Alert and Oriented x 3 Result Diagrams: 06/08/17 05:43 06/08/17 05:43 Microbiology and Other Data: . Microbiology 06/05/17 03:39 Blood Venous Aerobic Blood Culture - Preliminary No Growth Day 4 06/05/17 03:39 Blood Venous Anaerobic Blood Culture - Preliminary No Growth Day 4 06/05/17 03:45 Blood Venous Aerobic Blood Culture - Preliminary No Growth Day 4 06/05/17 03:45 Blood Venous Anaerobic Blood Culture - Preliminary No Growth Day 4 06/06/17 00:30 Urine Urine Culture - Final No Growth (<1,000 CFU/mL) Assess/Plan/Problems-Billing 66 yo female with a PMH significant for HTN, hypercholesterolemia, borderline diabetes, and macular degeneration who was referred to the ED on 06/03/17 after left hip lytic lesion was noted on XR and was found to metastatic disease lung cancer with multiple sites of involvement who is planned 5 days palliative radiation to hip and then home with hospice. - Patient Problems (1) UTI (urinary tract infection) due to urinary indwelling catheter Current Visit: Yes Status: Acute Code(s): T83.511A - I/I REACT D/T INDWELLING URETHRAL CATHETER, INIT; N39.0 - URINARY TRACT INFECTION, SITE NOT SPECIFIED SNOMED Code(s): 336937606 Comment: She developed a fever last evening. Her urine appears to be infected. Will start cipro 500mg BID. She will be going home with the catheter for comfort. (2) Metastatic disease Current Visit: Yes Status: Acute Code(s): C79.9 - SECONDARY MALIGNANT NEOPLASM OF UNSPECIFIED SITE SNOMED Code(s): 886906548 Comment: Continue palliative radiation to the left hip. Plan for home with hospice tomorrow. Continue oral MS contin (dose increased earlier today by Dr Lerma), oxycodone and roxanol. Will adjust doses as needed. (3) HTN (hypertension) Current Visit: Yes Status: Chronic Code(s): I10 - ESSENTIAL (PRIMARY) HYPERTENSION SNOMED Code(s): 35544196 Comment: BP soft off all home medications. Continue to follow. (4) Type 2 diabetes mellitus Current Visit: Yes Status: Chronic Comment: Borderline DM. No need for further evaluation or treatment. (5) Hypercholesteremia Current Visit: Yes Status: Chronic Code(s): E78.00 - PURE HYPERCHOLESTEROLEMIA, UNSPECIFIED SNOMED Code(s): 59206011 Comment: Statin d/lashae. (6) DVT prophylaxis Current Visit: Yes Status: Acute Code(s): [id number] - SNOMED Code(s): 116409975 Comment: SCDs as tolerated. (7) DNR (do not resuscitate) Current Visit: Yes Status: Acute Status and Disposition: d/c home with hospice 06/13/17
[2017-06-12] MEDS: Ciprofloxacin TAB* 500 MG PO SCH (21:01)
[2017-06-12] MEDS: Morphine INJ* 2 MG/ML 1 ML CARPUJECT IV PRN (21:05)
[2017-06-12] MEDS: Lidocaine Patch REMOVE* 1 NOTE MISC SCH (21:10)
[2017-06-13] MEDS: oxyCODONE TAB* 5 MG TAB PO PRN (05:13)
[2017-06-13] MEDS: Morphine INJ* 2 MG/ML 1 ML CARPUJECT IV PRN ×2 (05:14→12:26)
[2017-06-13 07:57] VITALS: BP 102/46
[2017-06-13] MEDS: Multivitamins/Minerals TAB PO SCH (08:09)
[2017-06-13] MEDS: Ciprofloxacin TAB* 500 MG PO SCH (08:09)
[2017-06-13] MEDS: Lidocaine PATCH 5%* 1 PATCH TRANSDERM SCH (08:10)
[2017-06-13] MEDS: Docusate CAP* 100 MG PO SCH (08:10)
[2017-06-13] MEDS: Gabapentin CAP(*) 300 MG PO SCH (08:14)
[2017-06-13] MEDS: Morphine INJ* 4 MG/ML 1 ML SYRINGE (NEW SYRINGE VERSION) IV PRN (09:55)
[2017-06-13] MEDS: Morphine TAB Extended Release (*) 15 MG TAB.ER PO SCH (09:55)
[2017-06-13] MEDS: Diazepam TAB(*) 5 MG PO PRN (09:56)
--- NOTE | 2017-06-14 12:17 | DS ---
CC: Dr. Patino * DISCHARGE SUMMARY: DATE OF ADMISSION: 06/03/17 DATE OF DISCHARGE: 06/13/17 PRIMARY CARE PROVIDER: Dr. Patino. ONCOLOGIST: Dr. Lerma. PRINCIPAL DIAGNOSIS: Metastatic non-small cell lung cancer with pathologic fracture of the left acetabulum. SECONDARY DIAGNOSES: 1. Hypertension. 2. Borderline diabetes. 3. Hypercholesterolemia. DISCHARGE MEDICATIONS: 1. Sumatriptan 100 mg p.o. daily p.r.n. migraine. 2. Gabapentin 300 mg p.o. twice daily and 600 mg at bedtime. 3. Oxycodone 10 mg p.o. q.6 hours p.r.n. pain. 4. Senna 1 tablet p.o. b.i.d. p.r.n. constipation. 5. Biotene mouth spray, one spray to the mouth 5 times daily p.r.n. dryness. 6. MiraLAX 17 g p.o. daily p.r.n. constipation. 7. Zofran ODT 8 mg p.o. q.8 hours p.r.n. nausea. 8. MS Contin 30 mg p.o. q.12 hours. 9. Roxanol 5 mg p.o. q.2 hours p.r.n. severe pain. 10. Ibuprofen 600 mg p.o. q.8 hours p.r.n. pain. 11. Colace 100 mg p.o. b.i.d. 12. Diazepam 2.5 mg p.o. q.8 hours p.r.n. anxiety. 13. Flexeril 10 mg p.o. t.i.d. p.r.n. spasm. 14. Cipro 500 mg p.o. q.12 hours. HOSPITAL COURSE: Ms. Pickett is a 66-year-old female, who presented to the emergency room on 06/03/17 with complaints of inability to ambulate and left leg pain. The patient had initially undergone lumbar spine MRI on 05/30/17. At that time it showed multilevel degenerative disk disease with broad-based protrusion with spondylotic ridge and facet and ligamentous hypertrophy. There were heterogenous bone marrow signal changes seen in the lumbar spine, they have now been noted to likely represent bony metastatic disease. She had asked for the MRI to be extended into the left hip due to the severe pain, however an order was unable to be obtained at that time. She therefore presented on the day of admission for x-rays of the left hip, which revealed a large lytic lesion involving the left ileum including the posterior and anterior columns of the hip and acetabulum and acetabular roof. In retrospect radiographic correlation with the MRI may be suspicious for diffuse osseous metastasis. The patient was admitted for evaluation of this. She was seen in consultation by, initially, Dr. Lerma on 06/04/17. Given her heavy tobacco abuse it was suspicious that the patient likely had a lung primary. A biopsy was recommended to biopsy an abdominal wall lesion. If that was unsuccessful, was recommended to biopsy the left rib lesion. A biopsy of the left chest wall revealed malignant adenocarcinoma. The patient was seen in consultation by Dr. Catherine from Orthopedic Surgery to discuss the findings about the left hip. It was recommended by him to minimize weightbearing to the left lower extremity. It was felt that surgical options would require total hip arthroplasty with tumor prosthesis, however it was felt that she may not even have sufficient bone for such implant. It was also felt that this procedure would not be done at [facility]. Ultimately, the decision was made to not pursue this. After lengthy discussion, the decision was also made to pursue only palliative radiation and not pursue chemotherapy. The patient has been referred to hospice and after completing 5 days of radiation therapy to the left hip the decision was made to discharge the patient home to be signed out to hospice on 06/13/17. During the course of hospitalization pain has been a major issue for the patient. Her medication regimen has been adjusted numerous times. She has been started on MS Contin with the dose increased during the hospitalization with better control of her care. Additionally, she will continue on Oxycodone 10 mg every 6 hours as needed as well as Roxanol 5 mg every 2 hours as needed for severe pain. Valium has been added as has Flexeril for anxiety and muscle spasms. The patient has been having regular bowel movements with the bowel regimen in place. On the day of discharge, the patient is alert, she is lying in bed, she appears to be in no acute distress. Her vital signs are stable. She is afebrile. Of note, the patient did spike a fever to 101.3 on the evening of 06/11/17 and she was identified to have a urinary tract infection. She has been started on Cipro for this with the culture results will need to be followed. Her cardiac exam reveals a normal S1 and S2 with a regular rate and rhythm. Her lungs are clear anteriorly and her abdomen is soft and nontender. FOLLOWUP CONCERNS: The patient is being discharged home to be signed on to hospice today 06/13/17. ACTIVITY LEVEL: Activity level is as tolerated though she is nonweightbearing to the left lower extremity. CONDITION ON DISCHARGE: Guarded but stable. TIME SPENT: 35 minutes was spent discharging this patient. [id number]/[facility] #: [id number] DUC
== END 2017-06-13 13:50 | disposition hospice, home (50) | DRG 543 ==
LOC: ED 13:15 → MED 17:30
PROVIDERS: ADMIT Hospitalist; ATTEND Hospitalist
PROC: 0WB83ZX Excision of Chest Wall, Percutaneous Approach, Diagnostic (ICD-10-PCS; principal; 2017-06-04)
PROC: DPY87ZZ Contact Radiation of Pelvic Bones (ICD-10-PCS; 2017-06-04)
DX: C79.51 Secondary malignant neoplasm of bone (principal); M84.550A Pathological fracture in neoplastic disease, pelvis, initial encounter for fracture; C34.31 Malignant neoplasm of lower lobe, right bronchus or lung; T83.511A Infection and inflammatory reaction due to indwelling urethral catheter, initial encounter; I10 Essential (primary) hypertension; H35.30 Unspecified macular degeneration; R73.03 Prediabetes; E78.00 Pure hypercholesterolemia, unspecified; M79.2 Neuralgia and neuritis, unspecified; W17.89XA Other fall from one level to another, initial encounter; M47.896 Other spondylosis, lumbar region; J43.9 Emphysema, unspecified; G43.909 Migraine, unspecified, not intractable, without status migrainosus; F41.9 Anxiety disorder, unspecified; M62.838 Other muscle spasm; E83.52 Hypercalcemia; I89.9 Noninfective disorder of lymphatic vessels and lymph nodes, unspecified; Z66 Do not resuscitate; M48.061 Spinal stenosis, lumbar region without neurogenic claudication; R09.02 Hypoxemia; M79.605 Pain in left leg; Z88.1 Allergy status to other antibiotic agents; Z88.2 Allergy status to sulfonamides; Z88.8 Allergy status to other drugs, medicaments and biological substances; Z90.710 Acquired absence of both cervix and uterus; Z87.891 Personal history of nicotine dependence; Z82.49 Family history of ischemic heart disease and other diseases of the circulatory system; Y92.002 Bathroom of unspecified non-institutional (private) residence as the place of occurrence of the external cause; Z80.3 Family history of malignant neoplasm of breast; Z80.8 Family history of malignant neoplasm of other organs or systems; Z83.3 Family history of diabetes mellitus; Z74.01 Bed confinement status; Z99.3 Dependence on wheelchair
CPT/HCPCS: 10021; 36415; 71045; 71260; 72192; 74177; 77014; 77280; 77307; 77331; 77334; 77336; 77387; 77412; 80048; 80053; 81003; 81015; 82607; 82728; 83036; 83540; 83550; 84443; 85025; 85045; 86141; 87040; 87077; 87086; 87186; 87502; 88172; 88173; 88305; 88341; 88342; 88360; 94760; 99223; 99232; 99233; 99284; A9270-GY; G8978-GP-CK; G8979-GP-CI; J1644; J1956; J2270; J3489; Q9967